=== PATIENT | female | born 1930 | race Caucasian/White ===

== ENCOUNTER → 2016-06-01 | Outpatient (CLI) | payer MEDICARE, OTHER ==
[2016-06-01 09:54] LABS: CH 29.7; CHCM 34.5; HCT 33.4 % (34.0-46.0); HGB 11.7 gm/dL (11.4-16.0); MCH 30.3 pg (25.0-35.0); MCV 86.7 fL (80.0-100.0); Mean Platelet Volume 8.3; RBC 3.85 m/uL (3.80-5.40); WBC 4.8 k/uL (3.8-10.6)
[2016-06-01 10:15] LABS: ALT 45 U/L (9-52); AST 30 U/L (14-36); Alkaline Phosphatase 165 U/L (38-126); Anion Gap 12 mmol/L; Blood Urea Nitrogen 22 mg/dL (7-17); Calcium 8.6 mg/dL (8.4-10.2); Carbon Dioxide 23 mmol/L (22-30); Chloride 95 mmol/L (98-107); Cholesterol 82 mg/dL (<200); Glucose 148 mg/dL (74-99); HDL Cholesterol 55 mg/dL (40-60); Non-African American GFR(MDRD) >60 (>60 ml/min/1.73 sqM); Potassium 4.3 mmol/L (3.5-5.1); Sodium 130 mmol/L (137-145); Total Bilirubin 1.5 mg/dL (0.2-1.3); Total Protein 7.5 g/dL (6.3-8.2); Triglycerides 35 mg/dL (<150)
== END | disposition home or self-care (01) ==
LOC: LABWHC1 08:41
PROVIDERS: ATTEND Family Medicine
DX: E11.9 Type 2 diabetes mellitus without complications (principal); I10 Essential (primary) hypertension
CPT/HCPCS: 36415; 80053; 80061; 83036; 84439; 84443; 85027

== ENCOUNTER → 2016-06-07 | Outpatient (CLI) | payer MEDICARE, OTHER ==
--- NOTE | 2016-06-07 15:34 | XR ---
EXAMINATION TYPE: XR chest 2V DATE OF EXAM: 06/07/2016 2:18 PM COMPARISON: Prior chest x-ray February HISTORY: Difficulty breathing, edema, weakness TECHNIQUE: Frontal and lateral views of the chest are obtained. FINDINGS: Patient is post median sternotomy. Intracardiac defibrillator leads are stable in the righ t atrium and ventricle. The heart is enlarged. Interval development of increased density at the right lung base, along the right upper lobe. No evident pneumothorax. Central vascularity and interstitium appear prominently. Surgical clip questioned over the right neck. IMPRESSION: There may be underlying congestive heart failure, correlate to exclude pneumonia, there is likely associated effusion and atelectasis versus edema. Suspect mitral annular calcification. A [place] message has been communicated to Eduar Warren DO via the [facility] system on 06/07/2016 3:32 PM, Message ID [id number].
== END | disposition home or self-care (01) ==
LOC: RADXRMAIN 13:45
PROVIDERS: ATTEND Family Medicine
DX: E86.0 Dehydration (principal); R60.9 Edema, unspecified
CPT/HCPCS: 71020

== ENCOUNTER → 2016-07-06 | Outpatient (CLI) | payer MEDICARE, OTHER ==
--- NOTE | 2016-07-06 12:43 | XR ---
EXAMINATION TYPE: XR chest 2V DATE OF EXAM: 07/06/2016 12:17 PM COMPARISON: Prior chest x-ray one June 2016 HISTORY: Cough and shortness of breath TECHNIQUE: Frontal and lateral views of the chest are obtained. FINDINGS: Patient is post median sternotomy. Heart remains enlarged. There is improvement in the int erstitium and prominence of the central vascularity. Residual patchy density persists at the right олег ng base. Intracardiac defibrillator is stable. No evident pneumothorax. Interstitium is somewhat incr eased. Some improvement in aeration resident in the right upper lobe. IMPRESSION: Improvement in volume status, aeration. Cardiomegaly. There may be a component of volume overload, right lower lobe atelectasis, effusion, edema, pneumonia not excluded.
== END ==
LOC: RADXRMAIN 11:52
PROVIDERS: ATTEND Family Medicine
DX: I51.7 Cardiomegaly (principal)
CPT/HCPCS: 71020

== ENCOUNTER → 2016-08-08 | Outpatient (CLI) | payer MEDICARE, OTHER ==
[2016-08-08 14:06] LABS: Anion Gap 12 mmol/L; Blood Urea Nitrogen 18 mg/dL (7-17); Calcium 8.6 mg/dL (8.4-10.2); Carbon Dioxide 23 mmol/L (22-30); Chloride 97 mmol/L (98-107); Glucose 121 mg/dL (74-99); Non-African American GFR(MDRD) >60 (>60 ml/min/1.73 sqM); Potassium 4.3 mmol/L (3.5-5.1); Sodium 132 mmol/L (137-145)
== END | disposition home or self-care (01) ==
LOC: LABWHC1 13:03
PROVIDERS: ATTEND Family Medicine
DX: R60.0 Localized edema (principal); G43.909 Migraine, unspecified, not intractable, without status migrainosus
CPT/HCPCS: 36415; 80048

== ENCOUNTER → 2016-11-21 | Outpatient (CLI) | payer MEDICARE, OTHER ==
[2016-11-21 13:32] LABS: Anion Gap 9 mmol/L; Blood Urea Nitrogen 37 mg/dL (7-17); Calcium 9.4 mg/dL (8.4-10.2); Carbon Dioxide 30 mmol/L (22-30); Chloride 103 mmol/L (98-107); Glucose 113 mg/dL (74-99); Non-African American GFR(MDRD) >60 (>60 ml/min/1.73 sqM); Potassium 4.8 mmol/L (3.5-5.1); Sodium 142 mmol/L (137-145)
== END | disposition home or self-care (01) ==
LOC: LABWHC1 12:46
PROVIDERS: ATTEND Family Medicine
DX: E03.9 Hypothyroidism, unspecified (principal); E11.9 Type 2 diabetes mellitus without complications; I50.9 Heart failure, unspecified; E87.1 Hypo-osmolality and hyponatremia
CPT/HCPCS: 36415; 80048; 84439; 84443

== ENCOUNTER 2017-01-10 16:44 | Inpatient (IN) | payer MEDICARE, OTHER ==
[2017-01-10] MEDS ORDERED: NALOXONE 0.4 MG/ML 1 ML VIAL IV PRN (17:23)
--- NOTE | 2017-01-10 17:32 | ED ---
General Adult HPI - General Chief complaint: Syncope Stated complaint: neuro consult Time Seen by Provider: 01/10/17 16:50 Source: patient, family, EMS, RN notes reviewed Mode of arrival: EMS Limitations: no limitations - History of Present Illness Initial comments: 86-year-old female presents as a transfer from [facility]. Patient was evaluated in the emergency department earlier today, prior to transfer for an episode of unresponsiveness and seizure-like activity. Patient is a poor historian, denies any complaints at the time of my evaluation. Denies chest pain or shortness of breath. Denies palpitations. States she does remember the events of this morning, does not remember being unconscious or any seizure-like activity. History obtained from both a daughter in the ER physician at [facility] states that the patient was unresponsive, had tensing of her right upper extremity. Patient's symptoms did resolve. She has had several these episodes over the past week. Patient denies fever or chills. Denies nausea vomiting or diarrhea. - Related Data Home Medications Medication Instructions Recorded Confirmed Aspirin 81 mg PO DAILY 01/30/15 05/15/15 Famotidine [Pepcid] 20 mg PO DAILY 01/30/15 05/15/15 Furosemide [Lasix] 20 mg PO DAILY 01/30/15 05/15/15 Atorvastatin [Lipitor] 40 mg PO HS 05/15/15 05/15/15 Levothyroxine Sodium [Synthroid] 100 mcg PO DAILY 05/15/15 05/15/15 Lisinopril [Zestril] 10 mg PO DAILY 05/15/15 05/15/15 Previous Rx's Medication Instructions Recorded hydrALAZINE HCL [Apresoline] 25 mg PO BID #60 tab 02/01/15 Carvedilol [Coreg] 6.25 mg PO BID-W/MEALS #60 tab 05/21/15 Repaglinide [Prandin] 1 mg PO TID #0 05/21/15 Allergies Allergy/AdvReac Type Severity Reaction Status Date / Time No Known Allergies Allergy Verified 05/15/15 11:02 Review of Systems ROS Statement: Those systems with pertinent positive or pertinent negative responses have been documented in the HPI. ROS Other: All systems not noted in ROS Statement are negative. Past Medical History Past Medical History: Coronary Artery Disease (CAD), Heart Failure, Diabetes Mellitus, Hearing Disorder / Deafness, Hypertension, Myocardial Infarction (ME) Additional Past Medical History / Comment(s): 05-04-14 [place]. per patient's family , patient never had a CVA/TIA. RUBY in Left ear. Last Myocardial Infarction Date:: 05-04-14 History of Any Multi-Drug Resistant Organisms: None Reported Past Surgical History: Cholecystectomy, Coronary Bypass/CABG, Heart Catheterization, Pacemaker Additional Past Surgical History / Comment(s): CABG May 2014 at [facility]. Past Anesthesia/Blood Transfusion Reactions: No Reported Reaction Type of Cardiac Device: AICD Device Placement Date:: April 2015 Past Psychological History: No Psychological Hx Reported Smoking Status: Never smoker Past Alcohol Use History: None Reported, Occasional Past Drug Use History: None Reported - Past Family History Father Family Medical History: CVA/TIA, Myocardial Infarction (ME) Mother Family Medical History: CVA/TIA General Exam Limitations: no limitations General appearance: alert, in no apparent distress, appears intoxicated Head exam: Present: atraumatic, normocephalic Eye exam: Present: normal appearance, PERRL ENT exam: Present: normal exam, mucous membranes moist Neck exam: Present: normal inspection. Absent: tenderness, meningismus Respiratory exam: Present: normal lung sounds bilaterally. Absent: respiratory distress Cardiovascular Exam: Present: regular rate, normal rhythm GI/Abdominal exam: Present: soft. Absent: distended, tenderness Extremities exam: Present: normal inspection, normal capillary refill. Absent: pedal edema Neurological exam: Present: alert, oriented X3, CN II-XII intact. Absent: motor sensory deficit Psychiatric exam: Present: flat affect Skin exam: Present: warm, dry, intact. Absent: cyanosis, diaphoretic Course Vital Signs 01/10/17 16:46 Temperature 97 F L Pulse Rate 63 Respiratory 18 Rate Blood Pressure 149/67 Medical Decision Making - Medical Decision Making 86-year-old female presenting as a transfer with episode of unresponsiveness and seizure-like activity. Patient does have a pacemaker. There was plantar admit the patient to [facility] for cardiology evaluation, however there is no neurology coverage and the patient's admitting physician and requested transfer for neurology evaluation. Laboratory studies were obtained at [facility], revealed a white blood cell, 6.7, hemoglobin 10.7, sodium 136, potassium 4.3, creatinine 0.66. Urinalysis was obtained, no signs of infection. Chest x-ray shows small right pleural effusion. CT showed no intracranial hemorrhage or mass effect. Patient 's past medical history includes hypothyroidism, COPD, congestive heart failure , diabetes, and pacemaker placement. Diagnosis: Concern for new onset seizures versus syncope. Disposition Clinical Impression: New onset seizure, Syncope Disposition: ADMITTED IP TO THIS [facility] Condition: Stable Referrals: Eduar Warren DO [Primary Care Provider] - 1-2 days Decision to Admit Reason: Admit from EC Decision Date: 01/10/17 Decision Time: 17:32
[2017-01-10 18:45] LABS: Glucose,Whole Blood 156 mg/dL (75-99)
[2017-01-10 18:55] LABS: Creatine Kinase 37 U/L (30-135)
[2017-01-10 19:08] LABS: Creatine Kinase MB 0.9 ng/mL (0.0-2.4); Troponin I <0.012 ng/mL (0.000-0.034)
[2017-01-10] MEDS: CARVEDILOL 6.25 MG TAB PO SCH (20:52)
[2017-01-10] MEDS: hydrALAZINE HCL 25 MG TAB PO SCH (20:53)
[2017-01-10] MEDS: ATORVASTATIN 40 MG TAB PO SCH (20:53)
[2017-01-10] MEDS: REPAGLINIDE 1 MG TAB PO SCH (21:11)
[2017-01-10 21:14] LABS: Glucose,Whole Blood 153 mg/dL (75-99)
[2017-01-11 00:50] LABS: Creatine Kinase MB 0.7 ng/mL (0.0-2.4); Troponin I 0.019 ng/mL (0.000-0.034)
[2017-01-11 02:55] LABS: Glucose,Whole Blood 156 mg/dL (75-99)
[2017-01-11 06:07] LABS: Glucose,Whole Blood 64 mg/dL (75-99)
[2017-01-11 06:26] LABS: Glucose,Whole Blood 82 mg/dL (75-99)
[2017-01-11] MEDS: LEVOTHYROXINE 100 MCG TAB PO SCH (06:37)
[2017-01-11] MEDS: CARVEDILOL 6.25 MG TAB PO SCH ×2 (06:37→18:34)
[2017-01-11 06:40] LABS: Basophils % (A) 0 %; CHCM 32.8; Eosinophils # (A) 0.2 k/uL (0-0.7); Eosinophils % (A) 4 %; HGB 11.2 gm/dL (11.4-16.0); Luc # (Auto) 0.19; Luc % (Auto) 3; Lymphocytes # (A) 1.5 k/uL (1.0-4.8); Lymphocytes % (A) 26 %; MCH 29.4 pg (25.0-35.0); Mean Platelet Volume 6.9; Monocytes # (A) 0.5 k/uL (0-1.0); Monocytes % (A) 8 %; Neutrophils # (A) 3.3 k/uL (1.3-7.7); Neutrophils % (A) 58 %; RBC 3.82 m/uL (3.80-5.40); RDW 14.1 % (11.5-15.5); WBC 5.7 k/uL (3.8-10.6); WBC (Perox) 6.08
[2017-01-11 06:58] LABS: ALT 63 U/L (9-52); AST 39 U/L (14-36); Alkaline Phosphatase 133 U/L (38-126); Anion Gap 9 mmol/L; Blood Urea Nitrogen 29 mg/dL (7-17); Calcium 9.5 mg/dL (8.4-10.2); Carbon Dioxide 25 mmol/L (22-30); Chloride 106 mmol/L (98-107); Glucose 67 mg/dL (74-99); Non-African American GFR(MDRD) >60 (>60 ml/min/1.73 sqM); Potassium 4.9 mmol/L (3.5-5.1); Sodium 140 mmol/L (137-145); Total Bilirubin 0.7 mg/dL (0.2-1.3); Total Protein 7.6 g/dL (6.3-8.2)
[2017-01-11 07:19] LABS: Creatine Kinase MB 0.8 ng/mL (0.0-2.4); Troponin I 0.014 ng/mL (0.000-0.034)
[2017-01-11] MEDS: ASPIRIN 81 MG CHEW PO SCH (08:05)
[2017-01-11] MEDS: hydrALAZINE HCL 25 MG TAB PO SCH (08:05)
[2017-01-11] MEDS: ISOSORBIDE DINITRATE 10 MG TAB PO SCH (08:05)
[2017-01-11] MEDS: FUROSEMIDE 40 MG TAB PO SCH (08:05)
[2017-01-11] MEDS: MAGNESIUM OXIDE 400 MG TAB PO SCH (08:06)
[2017-01-11] MEDS: POTASSIUM CHLORIDE ER 20 MEQ TAB.ER PO SCH (08:06)
[2017-01-11] MEDS: REPAGLINIDE 1 MG TAB PO SCH ×3 (08:06→18:34)
[2017-01-11] MEDS: ACETAMINOPHEN TAB 325 MG TAB PO PRN (08:19)
[2017-01-11] MEDS ORDERED: LISINOPRIL 10 MG TAB PO SCH (09:00)
--- NOTE | 2017-01-11 10:59 | CONS ---
CONSULTATION DATE OF CONSULTATION: 01/10/2017 CHIEF COMPLAINT: Syncope. HISTORY OF PRESENT ILLNESS: Mrs. Mendiola is a pleasant 86-year-old female, who is being evaluated by the Neurology Service per their request of Dr. Morgan for a syncopal episode. The patient was at home this morning and after she had breakfast and took her morning pills, she had an episode of reduced consciousness. Her daughter witnessed the spell and she informs me that the patient was sitting in her reclining chair and slumped forward and became less responsive. She noticed mild twitching in her right upper extremity. The symptoms lasted several minutes. She was initially taken to [facility] where she had a CT scan of the brain and it was normal according to the chart. Her daughter tells me that she did check her blood pressure at home and it was quite low with a systolic blood pressure in the 60s. Her CBC showed mild anemia with a hemoglobin of 10.7. Her basic metabolic profile and urinalysis were normal. A chest x-ray was done at [facility] which showed evidence of right pleural effusion. The patient states that she has been having recurrent episodes of hypotension. She does have history of cardiac disease with a pacemaker placement and is on multiple antihypertensive medications. These have been recently adjusted by her tufter operator but she is still running hypotensive at home when she checks her blood pressure. At the time of my evaluation, the patient is resting in her bed and appears to be in no acute distress. She denies any recurrence of any presyncopal or syncopal episodes since her admission. PAST MEDICAL HISTORY: Hypertension, coronary artery disease, congestive heart failure, diabetes, history of myocardial infarction, history of pacemaker placement and cholecystectomy. SOCIAL HISTORY: She denies any tobacco or drug use. She occasionally drinks alcohol. FAMILY HISTORY: Positive for heart disease and strokes. REVIEW OF SYSTEMS: CONSTITUTIONAL: Negative. EYES: Negative. ENT: Positive for chronic diminished hearing. CARDIOVASCULAR: As mentioned above. RESPIRATORY: Negative. NEUROLOGICAL: As mentioned above. She denies any lateralizing numbness or weakness. GASTROINTESTINAL: Negative. GENITOURINARY: Negative. PSYCHIATRIC: Negative. MUSCULOSKELETAL: Negative. ENDOCRINE: Positive for diabetes. DERMATOLOGICAL: Negative. PHYSICAL EXAM: Vital signs show a temperature of 97.6, pulse 70, respirations 16, blood pressure 155/74. GENERAL APPEARANCE: The patient is a well-developed female who appears to be in no acute distress. HEENT: Normocephalic, atraumatic, no facial asymmetry is seen, extraocular muscles are intact. Neck is supple with no masses felt. CARDIOVASCULAR: Regular rate and rhythm. ABDOMEN: Nontender, nondistended. Extremities showed no edema or clubbing. NEUROLOGICAL EXAM: The patient is alert, aware and oriented x3. Speech and language are normal. Strength is full in all 4 extremities. No pronator drift is seen. Sensory exam was normal to light touch in all 4 extremities. No tremors or seizure- like activity is seen. No facial asymmetry is seen on cranial nerve testing. IMPRESSION: 1. Syncopal episode. 2. Right upper extremity transient jerking, questionable focal seizure. 3. Hypotension. 4. Possible pneumonia. RECOMMENDATION: The patient did have a witnessed episode of loss of consciousness and the patient does not recall the event. The patient was very hypotensive when the episode occurred, as mentioned above. Her syncope was likely cardiovascular in etiology. I will order an EEG due to the transient right upper extremity jerking that was described by the patient's daughter, who did witness the event. Her CT scan of the brain was normal at [facility]. I do recommend a Cardiology consultation for further workup and management and possible adjustment of her antihypertensive medications. I also recommend antibiotic therapy given her above-mentioned chest x-ray results. Continue neuro checks. I will continue to follow with you. Further recommendations to follow. Thank you for allowing me to participate in the care of your patient. If you have any questions, please feel free to contact me. MMFABI / IJN: [id number] /
--- NOTE | 2017-01-11 11:23 | P.CRDCN ---
History of Present Illness Consult date: 01/11/17 Consult reason: sycope History of present illness: 86-year-old lady with history of coronary artery disease status post CABG ischemic cardiomyopathy status post AICD hypertension dyslipidemia who comes to Hospital having had episodes of syncope. Most of the information is obtained from patient's daughter. She has had 4 episodes of syncope over the last 6 weeks. All of these episodes where she passes sitting in a chair without any focal neurological deficits. She drools at her and mouth and wakes up when she is woken up. There is no history of bladder bowel incontinence. There is no history of other focal neurological deficits. At the time of my evaluation this morning she appears comfortable at rest and is free of symptoms. So far her cardiac enzymes have been negative. We haven't documented any tachycardia or bradycardia arrhythmias yet. Going to check her device and if this looks normal we are going to let the neurology pursue her workup. Review of Systems Constitutional: Denies chills. Denies fever. Eyes: Denies blurred vision. Denies pain. Ears, nose, mouth and throat: Denies headache. Denies sore throat. Cardiovascular: Denies chest pain. hasshortness of breath. Respiratory: Denies cough. Gastrointestinal: Denies abdominal pain. Denies diarrhea. Denies nausea. Denies vomiting. Musculoskeletal: Denies myalgias. Integumentary: Denies pruritus. Denies rash. Neurological: Denies numbness. Denies weakness. Psychiatric: Denies anxiety. Denies depression. Endocrine: Denies fatigue. Denies weight change. Genitourinary: Denies burning, hematuria, frequency of urination. Hematological: No anemia or excess bleeding. Past Medical History Past Medical History: Coronary Artery Disease (CAD), Heart Failure, Diabetes Mellitus, GERD/Reflux, Hearing Disorder / Deafness, Hyperlipidemia, Hypertension , Myocardial Infarction (ND), Thyroid Disorder Additional Past Medical History / Comment(s): 05-04-14 [place]. per patient's family , patient never had a CVA/TIA. KOTZEBUE in Left ear. UTI-ECOLI 2014,HIATAL HERNIA Last Myocardial Infarction Date:: 05-04-14 History of Any Multi-Drug Resistant Organisms: None Reported Past Surgical History: Cholecystectomy, Coronary Bypass/CABG, Heart Catheterization, Pacemaker Additional Past Surgical History / Comment(s): CABG May 2014 at [facility]. LT CATARACT SX, EGD W/ BX-NEG Past Anesthesia/Blood Transfusion Reactions: No Reported Reaction Type of Cardiac Device: AICD Device Placement Date:: April 2015 Smoking Status: Never smoker - Past Family History Father Family Medical History: CVA/TIA, Myocardial Infarction (ND) Mother Family Medical History: CVA/TIA Medications and Allergies Home Medications Medication Instructions Recorded Confirmed Type Furosemide [Lasix] 20 mg PO DAILY@1700 01/30/15 01/10/17 History hydrALAZINE HCL [Apresoline] 25 mg PO BID #60 tab 02/01/15 01/10/17 Rx Atorvastatin [Lipitor] 40 mg PO HS 05/15/15 01/10/17 History Levothyroxine Sodium [Synthroid] 100 mcg PO DAILY 05/15/15 01/10/17 History Carvedilol [Coreg] 6.25 mg PO BID-W/MEALS #60 tab 05/21/15 01/10/17 Rx Repaglinide [Prandin] 1 mg PO TID #0 05/21/15 01/10/17 Rx Furosemide [Lasix] 40 mg PO DAILY 01/10/17 01/10/17 History Isosorbide Dinitrate 30 mg PO DAILY 01/10/17 01/10/17 History Magnesium Oxide 800 mg PO DAILY 01/10/17 01/10/17 History Potassium Chloride [Klor-Con 20] 20 meq PO DAILY 01/10/17 01/10/17 History Allergies Allergy/AdvReac Type Severity Reaction Status Date / Time No Known Allergies Allergy Verified 05/15/15 11:02 Physical Exam Vitals: Vital Signs Temp Pulse Pulse Resp BP BP Pulse Ox 01/11/17 08:21 96.9 F L 62 18 138/54 98 01/11/17 03:12 97.9 F 73 18 127/78 97 01/11/17 00:00 97.0 F L 63 18 164/72 97 01/10/17 20:00 97.6 F 63 18 158/70 96 01/10/17 18:51 97.6 F 70 16 155/74 97 01/10/17 17:53 97.1 F L 67 20 137/108 98 01/10/17 16:46 97 F L 63 18 149/67 Intake and Output 01/10/17 01/11/17 01/11/17 22:59 06:59 14:59 Output Total 900 Balance -900 Output: Urine 900 Other: Voiding Method Toilet Toilet Toilet # Voids 1 Weight 49.442 kg 45.1 kg General: The patient is awake and alert, in no distress, and does not appear acutely ill. Skin: Skin is warm and dry and no rashes or lesions are noted. Eye: Pupils are equal, round and reactive to light, extra-ocular movements are intact; there is normal conjunctiva bilaterally. Ears, nose, mouth and throat: There are moist mucous membranes and no oral lesions. Neck: The neck is supple, there is no tenderness or JVD. Cardiovascular: There is a regular rate and rhythm. Ejection systolic murmur at the base Respiratory: Lungs are clear to auscultation, respirations are non-labored, breath sounds are equal. Gastrointestinal: Soft, non-distended, non-tender abdomen without masses or organomegaly noted. There is no rebound or guarding present. Bowel sounds are unremarkable. Back: There is no tenderness to palpation in the midline. There is no obvious deformity. Musculoskeletal: Normal ROM, no tenderness, There is no pedal edema. There is no calf tenderness or swelling. Extremities: No edema. Vascular: Femoral pulse is normal. Posterior tibial pulses are normal .Dorsalis pedis is palpable. Neurological: CN II-XII intact. There are no obvious motor or sensory deficits. Speech is normal. Psychiatric: Cooperative, appropriate mood & affect, normal judgment. Results 01/11/17 06:15 01/11/17 06:15 Cardiac Enzymes 01/10/17 01/10/17 01/11/17 Range/Units 18:18 23:59 06:15 AST 39 H (14-36) U/L CK-MB (CK-2) 0.9 0.7 (0.0-2.4) ng/mL Troponin I <0.012 0.019 (0.000-0.034) ng/mL 01/11/17 Range/Units 06:15 AST (14-36) U/L CK-MB (CK-2) 0.8 (0.0-2.4) ng/mL Troponin I 0.014 (0.000-0.034) ng/mL CBC 01/11/17 Range/Units 06:15 WBC 5.7 (3.8-10.6) k/uL RBC 3.82 (3.80-5.40) m/uL Hgb 11.2 L (11.4-16.0) gm/dL Hct 34.0 (34.0-46.0) % Plt Count 234 (150-450) k/uL Comprehensive Metabolic Panel 01/11/17 Range/Units 06:15 Sodium 140 (137-145) mmol/L Potassium 4.9 (3.5-5.1) mmol/L Chloride 106 (98-107) mmol/L Carbon Dioxide 25 (22-30) mmol/L BUN 29 H (7-17) mg/dL Creatinine 0.62 (0.52-1.04) mg/dL Glucose 67 L (74-99) mg/dL Calcium 9.5 (8.4-10.2) mg/dL AST 39 H (14-36) U/L ALT 63 H (9-52) U/L Alkaline Phosphatase 133 H (38-126) U/L Total Protein 7.6 (6.3-8.2) g/dL Albumin 4.2 (3.5-5.0) g/dL Current Medications Generic Name Dose Route Start Last Admin Trade Name Freq PRN Reason Stop Dose Admin Acetaminophen 650 mg 01/10/17 17:23 01/11/17 08:19 Tylenol Tab PO 650 mg Q6HR PRN Administration Mild Pain or Fever > 100.5 Aspirin 81 mg 01/11/17 09:00 01/11/17 08:05 Aspirin PO 81 mg DAILY SULAIMAN Administration Atorvastatin Calcium 40 mg 01/10/17 21:00 01/10/17 20:53 Lipitor PO 40 mg HS SULAIMAN Administration Carvedilol 6.25 mg 01/10/17 17:30 01/11/17 06:37 Coreg PO 6.25 mg BID-W/MEALS SULAIMAN Administration Furosemide 20 mg 01/11/17 17:00 Lasix PO DAILY@1700 SULAIMAN Furosemide 40 mg 01/11/17 09:00 01/11/17 08:05 Lasix PO 40 mg DAILY SULAIMAN Administration Hydralazine HCl 25 mg 01/10/17 21:00 01/11/17 08:05 Apresoline PO 25 mg BID SULAIMAN Administration Insulin Human Lispro 0 unit 01/11/17 12:30 Humalog SQ ACHS SULAIMAN Protocol Isosorbide Dinitrate 30 mg 01/11/17 09:00 01/11/17 08:05 Isordil PO 30 mg DAILY SULAIMAN Administration Levothyroxine Sodium 100 mcg 01/11/17 06:30 01/11/17 06:37 Synthroid PO 100 mcg DAILY@0630 SULAIMAN Administration Lisinopril 10 mg 01/11/17 09:00 01/11/17 08:05 Zestril PO 10 mg DAILY SULAIMAN Administration Magnesium Oxide 800 mg 01/11/17 09:00 01/11/17 08:06 Mag-Ox PO 800 mg DAILY SULAIMAN Administration Naloxone HCl 0.2 mg 01/10/17 17:23 Narcan IV Q2M PRN Opioid Reversal Potassium Chloride 20 meq 01/11/17 09:00 01/11/17 08:06 K-Dur 20 PO 20 meq DAILY SULAIMAN Administration Repaglinide 1 mg 01/10/17 22:00 01/11/17 08:06 Prandin PO 1 mg TID SULAIMAN Administration Intake and Output 01/10/17 01/11/17 01/11/17 22:59 06:59 14:59 Output Total 900 Balance -900 Output: Urine 900 Other: Voiding Method Toilet Toilet Toilet # Voids 1 Weight 49.442 kg 45.1 kg 01/11/17 06:15 01/11/17 06:15 EKG Interpretations (text) To be reviewed Assessment and Plan Plan: Syncope rule out cardiac causes CAD status post CABG Status post AICD Myocardial infarction is ruled out EKG shows sinus rhythm with left bundle branch block reviewed labs I will obtain a 2-D echo if one is not available We will do a carotid duplex follow the neurological workup check the device
[2017-01-11 11:45] LABS: Hemoglobin A1C 6.1 % (4.2-6.1)
[2017-01-11] MEDS: INSULIN LISPRO (humaLOG) 300 UNIT/3 ML VIAL SQ SCH ×3 (12:10→21:56)
[2017-01-11 12:23] LABS: Glucose,Whole Blood 74 mg/dL (75-99)
--- NOTE | 2017-01-11 14:42 | P.HPIM ---
History of Present Illness H&P Date: 01/11/17 Chief Complaint: Syncope This is an 86-year-old pleasant lady patient of Dr. Warren. Dr. BELLA Gregorio She has underlying history of ischemic cardiac myopathy, systolic CHF ejection fraction of 20%, status post AICD placement, hypothyroidism, diabetes mellitus type 2, hypertension, chronic right pleural effusion, COPD, who was sent in to the emergency room secondary to recurrent syncopal events. Patient would be noticed to be slumped over in her recliner, with drooling, is difficult to arouse, blood pressure was noted to be in the 60s according to the family members, blood sugar were all normal, otherwise there is no other focal neurologic deficits, patient had been witnessed to have decorticate posturing on the on the right side of the upper extremity when this occurs, this would be her fourth event. According to the family members be started 4 weeks ago the related to the initiation of Entresto, the medication would go go back down and thereafter be stabilized at the dosing and titrated up to a twice a day dose and the car ferry master thereafter discontinued this after the second with titration on his the blood pressure remained to be low. Hydralazine was not discontinued at this point however lisinopril was discontinued. Her Lasix remain the same. The symptoms persisted for another 2 weeks with syncope lightheadedness, despite withdrawal of the drug 2 weeks in a row. Patient's family are more concerned as the patient took a longer time to arouse this time hence the ER evaluation at [facility]. There was some concern about the seizure-like activity and the decortication eyes there was no neurologist agriculture extension specialist, patient was requested to be transferred to [facility]. As per family members urinalysis was performed and was unremarkable patient denies any headache no diplopia no isolated motor deficits in the upper and lower extremity, patient has chronic memory losses . No diarrhea no nausea no abdominal pain prior to admission. On the day of her stay in the hospital she had a few bouts of diarrhea she also has suprapubic pain on examination blood pressure is currently stable without any pressor agents, heart rate in the high 60s. Patient was in consultation by Dr. Delcid neurology and cardiology associates Review of Systems Constitutional: Reports as per HPI, Reports weakness, Denies anorexia, Denies chills, Denies chronic headaches, Denies chronic pain, Denies daytime sleepiness , Denies fatigue, Denies fever, Denies lethargy, Denies malaise, Denies night sweats, Denies poor appetite, Denies sweats, Denies weight gain, Denies weight loss Ears, nose, mouth and throat: Reports as per HPI, Denies ant. neck pain, Denies bleeding gums, Denies dental pain, Denies dysphagia, Denies epistaxis, Denies headache, Denies hoarseness, Denies mouth pain, Denies nasal congestion, Denies nasal discharge, Denies neck fullness/pressure, Denies neck lump, Denies nose pain, Denies odynophagia, Denies post-nasal drip, Denies sinus pain, Denies sinus pressure, Denies swelling in mouth, Denies swelling in throat, Denies sore throat, Denies vertigo, Denies voice changes Cardiovascular: Reports as per HPI, Reports lightheadedness, Reports syncope, Denies chest pain, Denies claudication, Denies decreased exercise tolerance, Denies dyspnea on exertion, Denies edema, Denies high blood pressure, Denies irregular heart beat, Denies leg edema, Denies orthopnea, Denies palpitations, Denies paroxysmal nocturnal dyspnea, Denies phlebitis, Denies rapid heart beat, Denies shortness of breath Respiratory: Reports as per HPI, Denies congestion, Denies cough, Denies cough with sputum, Denies dyspnea, Denies excessive sputum, Denies hemoptysis, Denies home oxygen, Denies pain, Denies pain on inspiration, Denies pleurisy, Denies respiratory infections, Denies sleep apnea, Denies snoring, Denies wheezing Gastrointestinal: Reports as per HPI Genitourinary: Reports as per HPI, Denies abnormal vaginal bleeding, Denies decreased libido, Denies difficulty conceiving, Denies difficulty voiding, Denies dysmenorrhea, Denies dyspareunia, Denies dysuria, Denies flank pain, Denies genital sores, Denies hematuria, Denies hot flashes, Denies incomplete emptying, Denies kidney stones, Denies menorrhagia, Denies mixed incontinence, Denies nocturia, Denies pelvic pain, Denies post void dribbling, Denies , Denies prolapse symptoms, Denies stress incontinence, Denies urge incontinence , Denies urgency, Denies urinary frequency, Denies vaginal discharge, Denies vaginal dryness, Denies vaginal itching, Denies vaginal odor Menstruation: Reports as per HPI, Denies amenorrhea, Denies amenorrhea on BC, Denies currently menstrual, Denies cycle < 21 days, Denies cycle > 35 days, Denies cycle variable, Denies menses 1-7 days, Denies menses 8 or > days, Denies menses variable, Denies period heavy, Denies period light, Denies period normal, Denies period spotting, Denies post hysterectomy, Denies postmenopausal , Denies premenarcheal Musculoskeletal: Reports as per HPI, Denies arm numbness/tingling, Denies atrophy, Denies fractures, Denies frequent falls, Denies gait dysfunction, Denies hot joints, Denies leg numbness/tingling, Denies limitation of motion, Denies loss of height, Denies low back pain, Denies morning stiffness, Denies muscle cramps, Denies muscle weakness, Denies myalgias, Denies neck pain, Denies neck stiffness, Denies prior amputations, Denies redness of joints, Denies shooting arm pain, Denies shooting leg pain Integumentary: Reports as per HPI, Denies acne, Denies boils, Denies brittle nails, Denies change in hair/nails, Denies color changes, Denies darkening of skin, Denies depigmentation, Denies dryness, Denies foot/leg ulcers, Denies growths, Denies hirsutism, Denies lesions, Denies onychomycosis, Denies pruritus , Denies rash, Denies sores, Denies striae, Denies unusual bruising, Denies wounds Neurological: Reports as per HPI, Reports vertigo, Denies aphasia, Denies ataxia , Denies balance difficulties, Denies burning pain, Denies change in mentation, Denies change in smell/taste, Denies change in speech, Denies confusion, Denies convulsions, Denies double vision, Denies gait dysfunction, Denies head injury, Denies headaches, Denies hearing difficulties, Denies lack of coordination, Denies loss of vision, Denies memory loss, Denies migraines, Denies motor disturbance, Denies numbness, Denies paralysis, Denies paresthesias, Denies seizures, Denies sensory deficit, Denies spasticity, Denies tic, Denies tingling , Denies transient paralysis, Denies tremors, Denies weakness, Denies visual changes Psychiatric: Reports as per HPI, Denies anhedonia, Denies anxiety, Denies anxiety attacks, Denies change in appetite, Denies change in libido, Denies change in sleep habits, Denies confusion, Denies depression, Denies difficulty concentrating, Denies disorientation, Denies hallucinations, Denies hopelessness , Denies hypersomnia, Denies insomnia, Denies irritability, Denies memory loss, Denies mood swings, Denies paranoia, Denies sadness/tearfulness, Denies sleep disturbances, Denies suicidal ideation Endocrine: Reports as per HPI, Denies cold intolerance, Denies deepening of the voice, Denies excessive sweating, Denies excessive thirst, Denies fatigue, Denies flushing, Denies heat intolerance, Denies high blood sugars, Denies increase in ring/shoe/hat size, Denies low blood sugars, Denies nocturia, Denies palpitations, Denies polydipsia, Denies polyphagia, Denies polyuria, Denies proptosis, Denies recent glucocorticoid use, Denies thyroid mass, Denies weight change Hematologic/Lymphatic: Reports as per HPI Allergic/Immunologic: Reports as per HPI, Denies allergic rhinitis, Denies anaphylaxis, Denies angioedema, Denies gluten intolerance, Denies persistent infections, Denies seasonal allergies, Denies urticaria, Denies wheezing Past Medical History Past Medical History: Coronary Artery Disease (CAD), Heart Failure, Diabetes Mellitus, GERD/Reflux, Hearing Disorder / Deafness, Hyperlipidemia, Hypertension , Myocardial Infarction ([place]), Thyroid Disorder Additional Past Medical History / Comment(s): 05-04-14 [place]. per patient's family , patient never had a CVA/TIA. [facility] in Left ear. UTI-ECOLI 2014,HIATAL HERNIA Last Myocardial Infarction Date:: 05-04-14 History of Any Multi-Drug Resistant Organisms: None Reported Past Surgical History: Cholecystectomy, Coronary Bypass/CABG, Heart Catheterization, Pacemaker Additional Past Surgical History / Comment(s): CABG May 2014 at [facility]. LT CATARACT SX, EGD W/ BX-NEG Past Anesthesia/Blood Transfusion Reactions: No Reported Reaction Type of Cardiac Device: AICD Device Placement Date:: April 2015 Smoking Status: Never smoker - Past Family History Father Family Medical History: CVA/TIA, Myocardial Infarction ([place]) Mother Family Medical History: CVA/TIA Medications and Allergies Home Medications Medication Instructions Recorded Confirmed Type Furosemide [Lasix] 20 mg PO DAILY@1700 01/30/15 01/10/17 History hydrALAZINE HCL [Apresoline] 25 mg PO BID #60 tab 02/01/15 01/10/17 Rx Atorvastatin [Lipitor] 40 mg PO HS 05/15/15 01/10/17 History Levothyroxine Sodium [Synthroid] 100 mcg PO DAILY 05/15/15 01/10/17 History Carvedilol [Coreg] 6.25 mg PO BID-W/MEALS #60 tab 05/21/15 01/10/17 Rx Repaglinide [Prandin] 1 mg PO TID #0 05/21/15 01/10/17 Rx Furosemide [Lasix] 40 mg PO DAILY 01/10/17 01/10/17 History Isosorbide Dinitrate 30 mg PO DAILY 01/10/17 01/10/17 History Magnesium Oxide 800 mg PO DAILY 01/10/17 01/10/17 History Potassium Chloride [Klor-Con 20] 20 meq PO DAILY 01/10/17 01/10/17 History Allergies Allergy/AdvReac Type Severity Reaction Status Date / Time No Known Allergies Allergy Verified 05/15/15 11:02 Physical Exam Vitals: Vital Signs Temp Pulse Pulse Resp BP BP BP 01/11/17 11:50 60 18 126/57 114/53 01/11/17 08:21 96.9 F L 62 18 01/11/17 03:12 97.9 F 73 18 01/11/17 00:00 97.0 F L 63 18 01/10/17 20:00 97.6 F 63 18 01/10/17 18:51 97.6 F 70 16 01/10/17 17:53 97.1 F L 67 20 137/108 01/10/17 16:46 97 F L 63 18 149/67 BP BP Pulse Ox 01/11/17 11:50 138/61 99 01/11/17 08:21 138/54 98 01/11/17 03:12 127/78 97 01/11/17 00:00 164/72 97 01/10/17 20:00 158/70 96 01/10/17 18:51 155/74 97 01/10/17 17:53 98 01/10/17 16:46 Intake and Output 01/10/17 01/11/17 01/11/17 22:59 06:59 14:59 Intake Total 737 Output Total 900 Balance -900 737 Intake: Oral 737 Output: Urine 900 Other: Voiding Method Toilet Toilet Toilet # Voids 1 2 # Bowel Movements 3 Weight 49.442 kg 45.1 kg - Constitutional General appearance: cooperative, no acute distress, thin - EENT Eyes: anicteric sclerae, EOMI, PERRLA, dentition normal, normal appearance ENT: NA/AT, normal oropharynx - Neck Neck: no lymphadenopathy, normal ROM, no other, no rigidity, no stridor, no thyromegaly - Respiratory Respiratory: bilateral: CTA, negative: diminished, dullness, rales, rhonchi, wheezing, prolonged expiration - Cardiovascular Rhythm: regular Heart sounds: normal: S1, S2 Abnormal Heart Sounds: no systolic murmur, no diastolic murmur, no rub, no S3 Gallop, no S4 Gallop, no click, no other - Gastrointestinal General gastrointestinal: normal bowel sounds, soft - Integumentary Integumentary: normal, normal turgor - Neurologic Neurologic: CNII-XII intact - Musculoskeletal Musculoskeletal: generalized weakness, strength equal bilaterally - Psychiatric Psychiatric: A&O x's 3, appropriate affect, intact judgment & insight Results CBC & Chem 7: 01/11/17 06:15 01/11/17 06:15 Labs: Abnormal Lab Results - Last 24 Hours (Table) 01/10/17 01/10/17 01/11/17 Range/Units 18:41 21:12 02:53 Hgb (11.4-16.0) gm/dL BUN (7-17) mg/dL Glucose (74-99) mg/dL POC Glucose (mg/dL) 156 H 153 H 156 H (75-99) mg/dL AST (14-36) U/L ALT (9-52) U/L Alkaline Phosphatase (38-126) U/L 01/11/17 01/11/17 01/11/17 Range/Units 06:05 06:15 06:15 Hgb 11.2 L (11.4-16.0) gm/dL BUN 29 H (7-17) mg/dL Glucose 67 L (74-99) mg/dL POC Glucose (mg/dL) 64 L (75-99) mg/dL AST 39 H (14-36) U/L ALT 63 H (9-52) U/L Alkaline Phosphatase 133 H (38-126) U/L 01/11/17 Range/Units 12:19 Hgb (11.4-16.0) gm/dL BUN (7-17) mg/dL Glucose (74-99) mg/dL POC Glucose (mg/dL) 74 L (75-99) mg/dL AST (14-36) U/L ALT (9-52) U/L Alkaline Phosphatase (38-126) U/L Laboratory Results WBC 5.7 k/uL (3.8-10.6) 01/11/17 06:15 RBC 3.82 m/uL (3.80-5.40) 01/11/17 06:15 Hgb 11.2 gm/dL (11.4-16.0) L 01/11/17 06:15 Hct 34.0 % (34.0-46.0) 01/11/17 06:15 MCV 89.0 fL (80.0-100.0) 01/11/17 06:15 MCH 29.4 pg (25.0-35.0) 01/11/17 06:15 MCHC 33.0 g/dL (31.0-37.0) 01/11/17 06:15 RDW 14.1 % (11.5-15.5) 01/11/17 06:15 Plt Count 234 k/uL (150-450) 01/11/17 06:15 Neutrophils % 58 % 01/11/17 06:15 Lymphocytes % 26 % 01/11/17 06:15 Monocytes % 8 % 01/11/17 06:15 Eosinophils % 4 % 01/11/17 06:15 Basophils % 0 % 01/11/17 06:15 Neutrophils # 3.3 k/uL (1.3-7.7) 01/11/17 06:15 Lymphocytes # 1.5 k/uL (1.0-4.8) 01/11/17 06:15 Monocytes # 0.5 k/uL (0-1.0) 01/11/17 06:15 Eosinophils # 0.2 k/uL (0-0.7) 01/11/17 06:15 Basophils # 0.0 k/uL (0-0.2) 01/11/17 06:15 Sodium 140 mmol/L (137-145) 01/11/17 06:15 Potassium 4.9 mmol/L (3.5-5.1) 01/11/17 06:15 Chloride 106 mmol/L (98-107) 01/11/17 06:15 Carbon Dioxide 25 mmol/L (22-30) 01/11/17 06:15 Anion Gap 9 mmol/L 01/11/17 06:15 BUN 29 mg/dL (7-17) H 01/11/17 06:15 Creatinine 0.62 mg/dL (0.52-1.04) 01/11/17 06:15 Est GFR (MDRD) Af Amer >60 (>60 ml/min/1.73 sqM) 01/11/17 06:15 Est GFR (MDRD) Non-Af >60 (>60 ml/min/1.73 sqM) 01/11/17 06:15 Glucose 67 mg/dL (74-99) L 01/11/17 06:15 POC Glucose (mg/dL) 74 mg/dL (75-99) L 01/11/17 12:19 POC Glu Log Sawyer Stu Armando 01/11/17 12:[address] Glu mg/dL 128 mg/dL 01/11/17 06:15 Hemoglobin A1c 6.1 % (4.2-6.1) 01/11/17 06:15 Calcium 9.5 mg/dL (8.4-10.2) 01/11/17 06:15 Magnesium 2.0 mg/dL (1.6-2.3) 01/11/17 06:15 Total Bilirubin 0.7 mg/dL (0.2-1.3) 01/11/17 06:15 AST 39 U/L (14-36) H 01/11/17 06:15 ALT 63 U/L (9-52) H 01/11/17 06:15 Alkaline Phosphatase 133 U/L (38-126) H 01/11/17 06:15 Total Creatine Kinase 32 U/L (30-135) 01/11/17 06:15 CK-MB (CK-2) 0.8 ng/mL (0.0-2.4) 01/11/17 06:15 CK-MB (CK-2) Rel Index 2.5 01/11/17 06:15 Troponin I 0.014 ng/mL (0.000-0.034) 01/11/17 06:15 Total Protein 7.6 g/dL (6.3-8.2) 01/11/17 06:15 Albumin 4.2 g/dL (3.5-5.0) 01/11/17 06:15 Thrombosis Risk Factor Assmnt - Choose All That Apply Each Risk Factor Represents 3 Points: Age 75 years or older Thrombosis Risk Factor Assessment Total Risk Factor Score: 3 Thrombosis Risk Factor Assessment Level: Moderate Risk Assessment and Plan Plan: Plan: 1 syncope useful in the morning after medication highly suspicious off medication induced hypotension occurrences are intermittent over the past 4 weeks this would be the fourth occurrence. However seizures cannot be ruled out , EEG of the brain and neurology consultation cardiology will be seeing the patient, doubt hypoglycemic events during this occurrences, blood pressure medications would be titrated again and with the resumption of Entresto 1D would discontinue hydralazine, and lisinopril. Entresto would be started on on January 13 to allow transition from an Jacob to entresto. Discussed with cardiology team and family members Last echocardiogram performed at [facility], September 2016 EF 15-20%, moderate to severe tricuspid regurgitation, right ventricle systolic pressure 46 , severe MR and no pericardial effusion no aortic stenosis noted, has aortic sclerosis and moderate aortic regurgitation 2Chronic CHF exacerbation with mixed systolic and diastolic component with severe systolic dysfunction ejection fraction 20% currently compensated. patient will be seen consultation by consultation by cardiology patient currently is on Coreg Lipitor aspirin 81 her last ultrasound shows ejection fraction of 20 percent September 2016. Troponins are normal 3. Prior non-ST [place] in 02/04/2015 status with critical multivessel coronary disease for which they have declined CABG procedures as recommended by Dr. Swan in the past January 2015: 4. History of ischemic cardiomyopathy ejection fraction of 20% with high degree A-V block requiring dual-chamber ICD implantation 01/30/2015 5 diabetes mellitus type 2 on Prandin with meals and Accu-Chek 6. COPD without any exacerbation 7. Hypertensive cardiovascular disease with ischemic cardiomyopathy, medication as above 8. Hypothyroidism on levothyroxine 9. CAD with previous CABG ABG at [facility] 10. History of parotitis diagnosed also in January 2015 no recurrence at this time 11 GERD: Will add Pepcid 20 mg daily. 12 DVT prophylaxis: Patient was started on Lanoxin 30 mg subcu daily for now. 13 Pulmonary prophylaxis: Incentive spirometry bedside.
[2017-01-11 15:29] LABS: Amorphous Sediment,Urine Occasional /hpf; Appearance,Urine Clear (Clear); Bilirubin,Urine Negative (Negative); Glucose,Urine (UA) Negative (Negative); Ketones,Urine Negative (Negative); Leukocyte Esterase,Urine Small (Negative); Mucus,Urine Rare /hpf; Nitrite,Urine Negative (Negative); Particle Count 2242; Protein,Urine Negative (Negative); RBC,Urine <1 /hpf (0-5); Specific Gravity,Urine 1.007 (1.001-1.035); Squamous Epithelial Cell,Urine <1 /hpf (0-4); UA Billing (MACRO vs. MICRO) MICRO; Urobilinogen,Urine <2.0 mg/dL (<2.0); WBC,Urine 5 /hpf (0-5)
--- NOTE | 2017-01-11 15:54 | P.PN ---
Subjective Principal diagnosis: Syncope This pleasant 86-year-old female continuing to be evaluated by the neurology service for syncopal episodes. She is being worked up by cardiology for potential cardiogenic causes for syncope. There is possibility that was medication induced in her antihypertensive has been changed. She does have a significant cardiac history. However, in the last couple weeks during her episodes of presyncope or syncope, there have been some questionable seizure- like movements of one or the other upper extremity. Neither she nor her daughter are aware of any significant postictal state. He has no previous history of seizures. There was no head injury. No recent infection. There've been no reported seizure like activity since her admission. An EEG has just been performed. Initial CT of the brain was normal. Objective - Vital Signs Vital signs: Vital Signs Temp 96.9 F L 01/11/17 08:21 Pulse 60 01/11/17 11:50 Resp 18 01/11/17 11:50 BP 138/61 01/11/17 11:50 Pulse Ox 99 01/11/17 11:50 Intake & Output 01/10/17 01/11/17 01/11/17 18:59 06:59 18:59 Intake Total 737 Output Total 900 Balance -900 737 Weight 49.442 kg 45.1 kg Intake: Oral 737 Output: Urine 900 Other: Voiding Method Toilet Toilet # Voids 1 2 # Bowel Movements 3 - Constitutional General appearance: Present: average body habitus, cooperative, no acute distress - EENT Eyes: Present: EOMI, PERRLA. Absent: abnormal pupil, ptosis ENT: Present: hearing grossly normal - Neck Neck: Present: normal ROM. Absent: rigidity - Respiratory Respiratory: negative: prolonged expiration, prolonged inspiration - Cardiovascular Rhythm: regular - Gastrointestinal General gastrointestinal: Absent: distended, tenderness - Neurologic Neurologic Comment(s): Patient is alert awake and oriented 3. Speech-language are normal. Strength is full in all 4 extremities. There is no sensory deficit. No tremors or seizure-like activities are seen. - Labs CBC & Chem 7: 01/11/17 06:15 01/11/17 06:15 Labs: Abnormal Lab Results - Last 24 Hours (Table) 01/10/17 01/10/17 01/11/17 Range/Units 18:41 21:12 02:53 Hgb (11.4-16.0) gm/dL BUN (7-17) mg/dL Glucose (74-99) mg/dL POC Glucose (mg/dL) 156 H 153 H 156 H (75-99) mg/dL AST (14-36) U/L ALT (9-52) U/L Alkaline Phosphatase (38-126) U/L Ur Leukocyte Esterase (Negative) Amorphous Sediment (None) /hpf Hyaline Casts (0-2) /lpf Urine Mucus (None) /hpf 01/11/17 01/11/17 01/11/17 Range/Units 06:05 06:15 06:15 Hgb 11.2 L (11.4-16.0) gm/dL BUN 29 H (7-17) mg/dL Glucose 67 L (74-99) mg/dL POC Glucose (mg/dL) 64 L (75-99) mg/dL AST 39 H (14-36) U/L ALT 63 H (9-52) U/L Alkaline Phosphatase 133 H (38-126) U/L Ur Leukocyte Esterase (Negative) Amorphous Sediment (None) /hpf Hyaline Casts (0-2) /lpf Urine Mucus (None) /hpf 01/11/17 01/11/17 Range/Units 12:19 15:15 Hgb (11.4-16.0) gm/dL BUN (7-17) mg/dL Glucose (74-99) mg/dL POC Glucose (mg/dL) 74 L (75-99) mg/dL AST (14-36) U/L ALT (9-52) U/L Alkaline Phosphatase (38-126) U/L Ur Leukocyte Esterase Small H (Negative) Amorphous Sediment Occasional H (None) /hpf Hyaline Casts 23 H (0-2) /lpf Urine Mucus Rare H (None) /hpf Assessment and Plan (1) Observed seizure-like activity Status: Acute (2) Syncope Status: Acute (3) CHF (congestive heart failure) Status: Chronic (4) HTN (hypertension) Status: Chronic (5) Ischemic cardiomyopathy Status: Chronic (6) S/P implantation of automatic cardioverter/defibrillator (AICD) Status: Chronic Plan: Her episode was likely cardiovascular in nature. An EEG has been performed and the data is available for us now for interpretation. Continue workup with cardiology. Continue neurological checks. Continue seizure precautions. We will continue to follow and make recommendations based on the above studies. If this possible seizure-like activity continues after her cardiac issues are stabilized, we may consider starting an antiepileptic medication versus working her up in outpatient setting. I have performed a history and physical on the above patient. I have reviewed the above note, and agree.
[2017-01-11 16:49] LABS: Glucose,Whole Blood 134 mg/dL (75-99)
[2017-01-11] MEDS: FUROSEMIDE 20 MG TAB PO SCH (18:34)
[2017-01-11 20:57] LABS: Glucose,Whole Blood 108 mg/dL (75-99)
[2017-01-11] MEDS ORDERED: DICYCLOMINE 10 MG CAP PO STA (21:45)
[2017-01-11] MEDS ORDERED: DICYCLOMINE 10 MG CAP PO PRN (21:45)
[2017-01-11] MEDS ORDERED: CHOLESTYRAMINE (WITH SUGAR) 4 GM PACKET PO STA (21:52)
[2017-01-11] MEDS: ATORVASTATIN 40 MG TAB PO SCH (21:57)
[2017-01-12 00:04] LABS: Glucose,Whole Blood 127 mg/dL (75-99)
[2017-01-12 05:55] LABS: Glucose,Whole Blood 79 mg/dL (75-99)
[2017-01-12] MEDS: INSULIN LISPRO (humaLOG) 300 UNIT/3 ML VIAL SQ SCH ×4 (06:37→20:51)
[2017-01-12] MEDS: LEVOTHYROXINE 100 MCG TAB PO SCH (06:39)
[2017-01-12] MEDS: CARVEDILOL 6.25 MG TAB PO SCH ×2 (06:39→17:51)
[2017-01-12 07:06] LABS: CHCM 32.9; HCT 31.8 % (34.0-46.0); HDW 2.37; HGB 10.4 gm/dL (11.4-16.0); MCH 28.9 pg (25.0-35.0); MCHC 32.7 g/dL (31.0-37.0); MCV 88.5 fL (80.0-100.0); Mean Platelet Volume 7.1; RDW 14.1 % (11.5-15.5); WBC 5.8 k/uL (3.8-10.6)
--- NOTE | 2017-01-12 07:12 | EEG ---
ELECTROENCEPHALOGRAM REPORT DATE OF SERVICE: 01/11/2017. REASON FOR TESTING: Syncope. DESCRIPTION OF THE PROCEDURE: This EEG was performed using a 21 channel digital electroencephalograph, following international 10-20 system. DESCRIPTION OF THE RECORDING: From the beginning of the tracing, and with patient's eyes closed, the background rhythm was mostly consisting of 9 Hz alpha frequency in the posterior occipital leads. No obvious asymmetry is seen. Occasional muscle and movement artifacts are seen. Photic stimulation was performed with a minimal driving response seen. No pathological waves were elicited. Hyperventilation was not performed. The patient remains awake throughout the tracing. No epileptiform discharges were seen. Her EKG lead showed a regular rate and rhythm. INTERPRETATION: This awake EEG can be considered within normal limits. There was no asymmetry seen. No epileptiform discharges were noticed. The absence of epileptiform discharges does not rule out the diagnosis of epilepsy, therefore clinical correlation is recommended. MMMARGARITAL / IJTalita: [id number] /
[2017-01-12 07:19] LABS: ALT 51 U/L (9-52); AST 31 U/L (14-36); Alkaline Phosphatase 101 U/L (38-126); Anion Gap 10 mmol/L; Blood Urea Nitrogen 31 mg/dL (7-17); Calcium 9.3 mg/dL (8.4-10.2); Carbon Dioxide 25 mmol/L (22-30); Chloride 102 mmol/L (98-107); Glucose 70 mg/dL (74-99); Non-African American GFR(MDRD) >60 (>60 ml/min/1.73 sqM); Potassium 4.9 mmol/L (3.5-5.1); Sodium 137 mmol/L (137-145); Total Bilirubin 0.6 mg/dL (0.2-1.3); Total Protein 7.2 g/dL (6.3-8.2)
[2017-01-12] MEDS: ASPIRIN 81 MG CHEW PO SCH (08:37)
[2017-01-12] MEDS: FUROSEMIDE 40 MG TAB PO SCH (08:37)
[2017-01-12] MEDS: MAGNESIUM OXIDE 400 MG TAB PO SCH (08:38)
[2017-01-12] MEDS: ISOSORBIDE DINITRATE 10 MG TAB PO SCH (08:38)
[2017-01-12] MEDS: REPAGLINIDE 1 MG TAB PO SCH ×3 (08:39→20:51)
[2017-01-12] MEDS: POTASSIUM CHLORIDE ER 20 MEQ TAB.ER PO SCH (08:39)
[2017-01-12 11:13] LABS: Glucose,Whole Blood 86 mg/dL (75-99)
--- NOTE | 2017-01-12 13:18 | P.PN ---
Subjective This is a pleasant 86-year-old lady with history of coronary artery disease status post CABG, ischemic cardiomyopathy, status post AICD, hypertension, and dyslipidemia. She presented to Hospital having had episodes of syncope. Most of the information is obtained from patient's daughter. According to the daughters, patient has been having episodes of low blood pressure. She was recently started on Entresto. Orthostatic blood pressures came in to be 138/61 supine, 126/57 sitting and 114/53 standing. ICD interrogation showed normal function and no tachyarrhythmias. She is feeling quite a better today, denies dizziness, syncope or near syncope. Her main complaint today is of diarrhea. Objective - Vital Signs Vital signs: Vital Signs Temp 97.4 F L 01/12/17 11:03 Pulse 60 01/12/17 11:03 Resp 16 01/12/17 08:00 BP 137/60 01/12/17 11:03 Pulse Ox 100 01/12/17 11:03 Intake & Output 01/11/17 01/12/17 01/12/17 18:59 06:59 18:59 Intake Total 857 Output Total 800 300 Balance 57 -300 Weight 51.3 kg 48.5 kg Intake: Oral 857 Output: Urine 800 300 Other: Voiding Method Toilet Toilet # Voids 2 2 # Bowel Movements 3 - Exam PHYSICAL EXAMINATION: HEENT: Head is atraumatic, normocephalic. Pupils equal, round. Neck is supple. There is no elevated jugular venous pressure. HEART EXAMINATION: Heart sounds regular, S1 and S2 normal with a systolic murmur. CHEST EXAMINATION: Lungs are clear to auscultation and precussion. No chest wall tenderness is noted on palpation or with deep breathing. ABDOMEN: Soft, nontender. Bowel sounds are heard. No organomegaly noted. EXTREMITIES: 2+ peripheral pulses with no evidence of peripheral edema and no calf tenderness noted. NEUROLOGIC patient is awake, alert and oriented x3. . - Labs CBC & Chem 7: 01/12/17 06:24 01/12/17 06:24 Labs: Abnormal Lab Results - Last 24 Hours (Table) 01/11/17 01/11/17 01/11/17 Range/Units 15:15 16:47 20:53 RBC (3.80-5.40) m/uL Hgb (11.4-16.0) gm/dL Hct (34.0-46.0) % BUN (7-17) mg/dL Glucose (74-99) mg/dL POC Glucose (mg/dL) 134 H 108 H (75-99) mg/dL Ur Leukocyte Esterase Small H (Negative) Amorphous Sediment Occasional H (None) /hpf Hyaline Casts 23 H (0-2) /lpf Urine Mucus Rare H (None) /hpf 01/12/17 01/12/17 01/12/17 Range/Units 00:02 06:24 06:24 RBC 3.60 L (3.80-5.40) m/uL Hgb 10.4 L (11.4-16.0) gm/dL Hct 31.8 L (34.0-46.0) % BUN 31 H (7-17) mg/dL Glucose 70 L (74-99) mg/dL POC Glucose (mg/dL) 127 H (75-99) mg/dL Ur Leukocyte Esterase (Negative) Amorphous Sediment (None) /hpf Hyaline Casts (0-2) /lpf Urine Mucus (None) /hpf Microbiology - Last 24 Hours (Table) 01/11/17 15:15 Urine Culture - Preliminary Urine,Clean Catch Assessment and Plan Plan: Assessment and plan #1 syncope, likely related to drop in blood pressure #2 coronary artery disease, status post CABG 3 ischemic cardiomyopathy, status post AICD Medications were reviewed, Entresto has been resumed. Hydralazine has been discontinued. She will follow-up with Dr. BELLA Cooney as an outpatient. The above dictated assessment and findings were discussed with signing physician. The impression and plan of care have been directed as dictated. Tasha Tran, Nurse Practitioner, acting as scribe for signing physician.
--- NOTE | 2017-01-12 16:34 | P.PN ---
Subjective This is an 86-year-old pleasant lady patient of Dr. Warren. Dr. BELLA Gregorio She has underlying history of ischemic cardiac myopathy, systolic CHF ejection fraction of 20%, status post AICD placement, hypothyroidism, diabetes mellitus type 2, hypertension, chronic right pleural effusion, COPD, who was sent in to the emergency room secondary to recurrent syncopal events. Patient would be noticed to be slumped over in her recliner, with drooling, is difficult to arouse, blood pressure was noted to be in the 60s according to the family members, blood sugar were all normal, otherwise there is no other focal neurologic deficits, patient had been witnessed to have decorticate posturing on the on the right side of the upper extremity when this occurs, this would be her fourth event. According to the family members be started 4 weeks ago the related to the initiation of Entresto, the medication would go go back down and thereafter be stabilized at the dosing and titrated up to a twice a day dose and the mold checker thereafter discontinued this after the second with titration on his the blood pressure remained to be low. Hydralazine was not discontinued at this point however lisinopril was discontinued. Her Lasix remain the same. The symptoms persisted for another 2 weeks with syncope lightheadedness, despite withdrawal of the drug 2 weeks in a row. Patient's family are more concerned as the patient took a longer time to arouse this time hence the ER evaluation at [facility]. There was some concern about the seizure-like activity and the decortication eyes there was no neurologist afternoon babysitter, patient was requested to be transferred to [facility]. As per family members urinalysis was performed and was unremarkable patient denies any headache no diplopia no isolated motor deficits in the upper and lower extremity, patient has chronic memory losses . No diarrhea no nausea no abdominal pain prior to admission. On the day of her stay in the hospital she had a few bouts of diarrhea she also has suprapubic pain on examination blood pressure is currently stable without any pressor agents, heart rate in the high 60s. Patient was in consultation by Dr. Delcid neurology and cardiology associates 01/12: Patient has diarrhea which has resolved as his morning required been till and Questran, no lightheadedness or dizziness no nausea no vomiting, expecting Entresto to be started in the morning hydralazine and losartan has been discontinued, Objective - Vital Signs Vital signs: Vital Signs Temp 97.4 F L 01/12/17 11:03 Pulse 60 01/12/17 11:03 Resp 16 01/12/17 08:00 BP 137/60 01/12/17 11:03 Pulse Ox 100 01/12/17 11:03 Intake & Output 01/11/17 01/12/17 01/12/17 18:59 06:59 18:59 Intake Total 857 Output Total 800 300 Balance 57 -300 Weight 51.3 kg 48.5 kg Intake: Oral 857 Output: Urine 800 300 Other: Voiding Method Toilet Toilet # Voids 2 2 1 # Bowel Movements 3 - Constitutional General appearance: Present: average body habitus, cooperative, no acute distress - EENT Eyes: Present: anicteric sclerae, PERRLA, dentition normal, normal appearance ENT: Present: hearing grossly normal, NA/AT, normal oropharynx - Neck Neck: Present: normal ROM - Respiratory Respiratory: bilateral: CTA, negative: diminished, dullness, rales, rhonchi - Cardiovascular Rhythm: regular Heart sounds: normal: S1 Abnormal Heart Sounds: Absent: systolic murmur, diastolic murmur, rub, S3 Gallop , S4 Gallop, click, other - Gastrointestinal General gastrointestinal: Present: normal bowel sounds, soft - Integumentary Integumentary: Present: normal - Neurologic Neurologic: Present: CNII-XII intact - Musculoskeletal Musculoskeletal: Present: gait normal, strength equal bilaterally - Psychiatric Psychiatric: Present: A&O x's 3, intact judgment & insight - Labs CBC & Chem 7: 01/12/17 06:24 01/12/17 06:24 Labs: Abnormal Lab Results - Last 24 Hours (Table) 01/11/17 01/11/17 01/12/17 Range/Units 16:47 20:53 00:02 RBC (3.80-5.40) m/uL Hgb (11.4-16.0) gm/dL Hct (34.0-46.0) % BUN (7-17) mg/dL Glucose (74-99) mg/dL POC Glucose (mg/dL) 134 H 108 H 127 H (75-99) mg/dL 01/12/17 01/12/17 Range/Units 06:24 06:24 RBC 3.60 L (3.80-5.40) m/uL Hgb 10.4 L (11.4-16.0) gm/dL Hct 31.8 L (34.0-46.0) % BUN 31 H (7-17) mg/dL Glucose 70 L (74-99) mg/dL POC Glucose (mg/dL) (75-99) mg/dL Microbiology - Last 24 Hours (Table) 01/11/17 15:15 Urine Culture - Preliminary Urine,Clean Catch Assessment and Plan Plan: 1 syncope usuallyl in the morning after medication highly suspicious of medication induced hypotension occurrences are intermittent over the past 4 weeks this would be the fourth occurrence. However seizures cannot be ruled out , EEG of the brain and neurology consultation cardiology will be seeing the patient, doubt hypoglycemic events during this occurrences, blood pressure medications would be titrated again and with the resumption of Entresto 1 tab bid, would discontinue hydralazine, and lisinopril. Entresto would be started on on January 13 to allow transition from an Jacob to entresto. Discussed with cardiology team and family members Last echocardiogram performed at [facility], September 2016 EF 15-20%, moderate to severe tricuspid regurgitation, right ventricle systolic pressure 46 , severe MR and no pericardial effusion no aortic stenosis noted, has aortic sclerosis and moderate aortic regurgitation 2Chronic CHF exacerbation with mixed systolic and diastolic component with severe systolic dysfunction ejection fraction 20% currently compensated. patient will be seen consultation by consultation by cardiology patient currently is on Coreg Lipitor aspirin 81 her last ultrasound shows ejection fraction of 20 percent September 2016. Troponins are normal 3. Prior non-ST [place] in 02/04/2015 status with critical multivessel coronary disease for which they have declined CABG procedures as recommended by Dr. Swan in the past January 2015: 4. History of ischemic cardiomyopathy ejection fraction of 20% with high degree A-V block requiring dual-chamber ICD implantation 01/30/2015 5 diabetes mellitus type 2 on Prandin with meals and Accu-Chek 6. COPD without any exacerbation 7. Hypertensive cardiovascular disease with ischemic cardiomyopathy, medication as above 8. Hypothyroidism on levothyroxine 9. CAD with previous CABG ABG at [facility] 10. History of parotitis diagnosed also in January 2015 no recurrence at this time 11 GERD: Will add Pepcid 20 mg daily. 12. Diarrhea transient C. diff negative symptoms improved this morning 9: 8 12 DVT prophylaxis: Patient was started on Lanoxin 30 mg subcu daily for now. 13 Pulmonary prophylaxis: Incentive spirometry bedside.
[2017-01-12 17:05] LABS: Glucose,Whole Blood 100 mg/dL (75-99)
--- NOTE | 2017-01-12 17:42 | P.PN ---
Subjective Principal diagnosis: Patient is a pleasant 86-year-old female who is being followed by the neurology service for syncopal episode. Patient had a witnessed episode of loss of consciousness with right upper extremity jerking. There are no post ictal symptoms described. Patient has no history of seizures. Patient is being followed by cardiology for possible cardiogenic cause of syncope. Patient was taken to [facility] and underwent a computed tomography scan of the brain which was normal according to the chart. Patient does have history of recurrent episodes of hypotension. Patient has history of cardiac disease with pacemaker. She's not had any recurrence of any presyncopal or syncopal episodes since admission. At the time of my evaluation, patient is resting comfortably in bed and appears to be in no acute distress. Objective - Vital Signs Vital signs: Vital Signs Temp 97.4 F L 01/12/17 11:03 Pulse 60 01/12/17 11:03 Resp 16 01/12/17 08:00 BP 137/60 01/12/17 11:03 Pulse Ox 100 01/12/17 11:03 Intake & Output 01/11/17 01/12/17 01/12/17 18:59 06:59 18:59 Intake Total 857 Output Total 800 300 Balance 57 -300 Weight 51.3 kg 48.5 kg Intake: Oral 857 Output: Urine 800 300 Other: Voiding Method Toilet Toilet # Voids 2 2 1 # Bowel Movements 3 - Exam PHYSICAL EXAM: GENERAL APPEARANCE: Patient is a well-developed female who appears to be in no acute distress. HEENT: Normocephalic, atraumatic, no facial asymmetry is seen. Neck is supple with no masses felt. CARDIOVASCULAR: Regular rate and rhythm. ABDOMEN: Nontender, nondistended. EXTREMITIES: Show no edema or clubbing. NEUROLOGICAL EXAM: Patient is awake, alert, and oriented 3. Speech and language are normal. Strength is full in all 4 extremities. No pronator drift is seen. Sensory exam is normal to light touch in all 4 extremities. No facial asymmetry is seen on cranial nerve testing. No tremors or seizure-like activity is noted. - Labs CBC & Chem 7: 01/12/17 06:24 01/12/17 06:24 Labs: Abnormal Lab Results - Last 24 Hours (Table) 01/11/17 01/12/17 01/12/17 Range/Units 20:53 00:02 06:24 RBC 3.60 L (3.80-5.40) m/uL Hgb 10.4 L (11.4-16.0) gm/dL Hct 31.8 L (34.0-46.0) % BUN (7-17) mg/dL Glucose (74-99) mg/dL POC Glucose (mg/dL) 108 H 127 H (75-99) mg/dL 01/12/17 01/12/17 Range/Units 06:24 17:04 RBC (3.80-5.40) m/uL Hgb (11.4-16.0) gm/dL Hct (34.0-46.0) % BUN 31 H (7-17) mg/dL Glucose 70 L (74-99) mg/dL POC Glucose (mg/dL) 100 H (75-99) mg/dL Microbiology - Last 24 Hours (Table) 01/11/17 15:15 Urine Culture - Preliminary Urine,Clean Catch Assessment and Plan Plan: The patient's witnessed episode of loss of consciousness is likely cardiovascular in nature. Patient's symptoms are consistent with hypotensive episode. EEG was done and is normal. There've been no further episodes reported since admission. Continue management per cardiology. As you recall, CT of the brain was normal at [facility]. Patient is stable from a neurological standpoint. I will continue to follow with you on an as- needed basis. Feel free to call with any questions or concerns. I performed an examination of the patient and discussed the management with the LEVELER HELPER. I have reviewed the LEVELER HELPER notes and agree with the findings and plan of care.
[2017-01-12] MEDS: FUROSEMIDE 20 MG TAB PO SCH (17:51)
[2017-01-12 20:48] LABS: Glucose,Whole Blood 118 mg/dL (75-99)
[2017-01-12] MEDS: ATORVASTATIN 40 MG TAB PO SCH (20:51)
[2017-01-12 23:30] LABS: Glucose,Whole Blood 92 mg/dL (75-99)
[2017-01-13] MEDS: LEVOTHYROXINE 100 MCG TAB PO SCH (06:53)
[2017-01-13 07:05] LABS: Basophils % (A) 1 %; CH 30.2; CHCM 33.9; Eosinophils # (A) 0.2 k/uL (0-0.7); Eosinophils % (A) 4 %; HCT 32.4 % (34.0-46.0); HDW 2.41; HGB 10.7 gm/dL (11.4-16.0); Luc # (Auto) 0.16; Luc % (Auto) 3; Lymphocytes # (A) 1.6 k/uL (1.0-4.8); Lymphocytes % (A) 28 %; MCH 29.6 pg (25.0-35.0); MCV 89.8 fL (80.0-100.0); Mean Platelet Volume 7.4; Monocytes # (A) 0.5 k/uL (0-1.0); Monocytes % (A) 9 %; Neutrophils # (A) 3.1 k/uL (1.3-7.7); Neutrophils % (A) 56 %; RBC 3.61 m/uL (3.80-5.40); RDW 14.6 % (11.5-15.5); WBC 5.6 k/uL (3.8-10.6); WBC (Perox) 6.05
[2017-01-13 07:18] LABS: Glucose,Whole Blood 86 mg/dL (75-99)
[2017-01-13 07:37] LABS: Anion Gap 8 mmol/L; Blood Urea Nitrogen 24 mg/dL (7-17); Calcium 9.5 mg/dL (8.4-10.2); Carbon Dioxide 25 mmol/L (22-30); Chloride 103 mmol/L (98-107); Glucose 79 mg/dL (74-99); Non-African American GFR(MDRD) >60 (>60 ml/min/1.73 sqM); Potassium 4.8 mmol/L (3.5-5.1); Sodium 136 mmol/L (137-145)
[2017-01-13] MEDS: SACUBITRIL/VALSARTAN 24 MG-26 MG TABLET PO SCH ×2 (07:45→21:04)
[2017-01-13] MEDS: REPAGLINIDE 1 MG TAB PO SCH ×3 (07:45→17:44)
[2017-01-13] MEDS: FUROSEMIDE 40 MG TAB PO SCH (07:45)
[2017-01-13] MEDS: MAGNESIUM OXIDE 400 MG TAB PO SCH (07:45)
[2017-01-13] MEDS: INSULIN LISPRO (humaLOG) 300 UNIT/3 ML VIAL SQ SCH ×4 (07:45→21:03)
[2017-01-13] MEDS: CARVEDILOL 6.25 MG TAB PO SCH ×2 (07:45→17:44)
[2017-01-13] MEDS: ISOSORBIDE DINITRATE 10 MG TAB PO SCH (07:45)
[2017-01-13] MEDS: POTASSIUM CHLORIDE ER 20 MEQ TAB.ER PO SCH (07:45)
[2017-01-13] MEDS: ASPIRIN 81 MG CHEW PO SCH (07:45)
[2017-01-13 11:27] LABS: Glucose,Whole Blood 88 mg/dL (75-99)
--- NOTE | 2017-01-13 16:22 | P.PN ---
Subjective This is an 86-year-old pleasant lady patient of Dr. Warren. Dr. BELLA Gregorio She has underlying history of ischemic cardiac myopathy, systolic CHF ejection fraction of 20%, status post AICD placement, hypothyroidism, diabetes mellitus type 2, hypertension, chronic right pleural effusion, COPD, who was sent in to the emergency room secondary to recurrent syncopal events. Patient would be noticed to be slumped over in her recliner, with drooling, is difficult to arouse, blood pressure was noted to be in the 60s according to the family members, blood sugar were all normal, otherwise there is no other focal neurologic deficits, patient had been witnessed to have decorticate posturing on the on the right side of the upper extremity when this occurs, this would be her fourth event. According to the family members be started 4 weeks ago the related to the initiation of Entresto, the medication would go go back down and thereafter be stabilized at the dosing and titrated up to a twice a day dose and the early head start director thereafter discontinued this after the second with titration on his the blood pressure remained to be low. Hydralazine was not discontinued at this point however lisinopril was discontinued. Her Lasix remain the same. The symptoms persisted for another 2 weeks with syncope lightheadedness, despite withdrawal of the drug 2 weeks in a row. Patient's family are more concerned as the patient took a longer time to arouse this time hence the ER evaluation at [facility]. There was some concern about the seizure-like activity and the decortication eyes there was no neurologist superintendent plant protection, patient was requested to be transferred to [facility]. As per family members urinalysis was performed and was unremarkable patient denies any headache no diplopia no isolated motor deficits in the upper and lower extremity, patient has chronic memory losses . No diarrhea no nausea no abdominal pain prior to admission. On the day of her stay in the hospital she had a few bouts of diarrhea she also has suprapubic pain on examination blood pressure is currently stable without any pressor agents, heart rate in the high 60s. Patient was in consultation by Dr. Delcid neurology and cardiology associates 01/12: Patient has diarrhea which has resolved as his morning required been till and Questran, no lightheadedness or dizziness no nausea no vomiting, expecting Entresto to be started in the morning hydralazine and losartan has been discontinued, 01/13: Patient's doing okay without any symptoms, and entresto started this morning. Orthostatics is closely monitored, if patient continues to do well, we 'll discharge in the morning. No hypoglycemia noted Objective - Vital Signs Vital signs: Vital Signs Temp 97.7 F 01/13/17 07:00 Pulse 60 01/13/17 09:00 Resp 16 01/13/17 07:00 BP 129/58 01/13/17 09:00 Pulse Ox 100 01/13/17 07:00 Intake & Output 01/12/17 01/13/17 01/13/17 18:59 06:59 18:59 Weight 48.5 kg Other: Voiding Method Toilet # Voids 1 3 - Constitutional General appearance: Present: cooperative, no acute distress - EENT Eyes: Present: anicteric sclerae, EOMI, PERRLA, normal appearance ENT: Present: NA/AT, normal oropharynx - Neck Neck: Present: normal ROM. Absent: lymphadenopathy, other, rigidity, stridor, thyromegaly - Respiratory Respiratory: bilateral: CTA, negative: diminished, dullness, rales, rhonchi, wheezing - Cardiovascular Rhythm: regular Heart sounds: normal: S1, S2 Abnormal Heart Sounds: Present: systolic murmur. Absent: diastolic murmur, rub , S3 Gallop, S4 Gallop, click, other - Gastrointestinal General gastrointestinal: Present: normal bowel sounds, soft - Integumentary Integumentary: Present: normal, normal turgor - Neurologic Neurologic: Present: CNII-XII intact - Musculoskeletal Musculoskeletal: Present: gait normal, strength equal bilaterally - Psychiatric Psychiatric: Present: A&O x's 3, appropriate affect, intact judgment & insight - Labs CBC & Chem 7: 01/13/17 06:38 01/13/17 06:38 Labs: Abnormal Lab Results - Last 24 Hours (Table) 01/12/17 01/12/17 01/13/17 Range/Units 17:04 20:46 06:38 RBC 3.61 L (3.80-5.40) m/uL Hgb 10.7 L (11.4-16.0) gm/dL Hct 32.4 L (34.0-46.0) % Sodium (137-145) mmol/L BUN (7-17) mg/dL POC Glucose (mg/dL) 100 H 118 H (75-99) mg/dL 01/13/17 Range/Units 06:38 RBC (3.80-5.40) m/uL Hgb (11.4-16.0) gm/dL Hct (34.0-46.0) % Sodium 136 L (137-145) mmol/L BUN 24 H (7-17) mg/dL POC Glucose (mg/dL) (75-99) mg/dL Microbiology - Last 24 Hours (Table) 01/11/17 15:15 Urine Culture - Final Urine,Clean Catch Assessment and Plan Plan: 1 syncope usuallyl in the morning after medication highly suspicious of medication induced hypotension occurrences are intermittent over the past 4 weeks this would be the fourth occurrence. However seizures cannot be ruled out , EEG of the brain and neurology consultation cardiology will be seeing the patient, doubt hypoglycemic events during this occurrences, blood pressure medications would be titrated again and with the resumption of Entresto 1 tab bid, would discontinue hydralazine, and lisinopril. Entresto would be started on on January 13 to allow transition from an Jacob to entresto. Discussed with cardiology team and family members Last echocardiogram performed at [facility], September 2016 EF 15-20%, moderate to severe tricuspid regurgitation, right ventricle systolic pressure 46 , severe MR and no pericardial effusion no aortic stenosis noted, has aortic sclerosis and moderate aortic regurgitation 2Chronic CHF exacerbation with mixed systolic and diastolic component with severe systolic dysfunction ejection fraction 20% currently compensated. patient will be seen consultation by consultation by cardiology patient currently is on Coreg Lipitor aspirin 81 her last ultrasound shows ejection fraction of 20 percent September 2016. Troponins are normal 3. Prior non-ST [place] in 02/04/2015 status with critical multivessel coronary disease for which they have declined CABG procedures as recommended by Dr. Swan in the past January 2015: 4. History of ischemic cardiomyopathy ejection fraction of 20% with high degree A-V block requiring dual-chamber ICD implantation 01/30/2015 5 diabetes mellitus type 2 on Prandin with meals and Accu-Chek 6. COPD without any exacerbation 7. Hypertensive cardiovascular disease with ischemic cardiomyopathy, medication as above 8. Hypothyroidism on levothyroxine 9. CAD with previous CABG ABG at [facility] 10. History of parotitis diagnosed also in January 2015 no recurrence at this time 11 GERD: Will add Pepcid 20 mg daily. 12. Diarrhea transient C. diff negative symptoms improved this morning 9: 8 12 DVT prophylaxis: Patient was started on Lanoxin 30 mg subcu daily for now. 13 Pulmonary prophylaxis: Incentive spirometry bedside.
[2017-01-13 17:23] LABS: Glucose,Whole Blood 125 mg/dL (75-99)
[2017-01-13] MEDS: FUROSEMIDE 20 MG TAB PO SCH (17:44)
[2017-01-13] MEDS: MIDODRINE 5 MG TAB PO SCH (17:44)
[2017-01-13 20:23] LABS: Glucose,Whole Blood 119 mg/dL (75-99)
[2017-01-13] MEDS: ATORVASTATIN 40 MG TAB PO SCH (21:04)
[2017-01-13] MEDS: ACETAMINOPHEN TAB 325 MG TAB PO PRN (21:10)
[2017-01-14] MEDS: LEVOTHYROXINE 100 MCG TAB PO SCH (06:29)
[2017-01-14 06:54] LABS: Basophils % (A) 0 %; CH 29.9; CHCM 33.4; Eosinophils # (A) 0.2 k/uL (0-0.7); Eosinophils % (A) 5 %; HCT 33.5 % (34.0-46.0); HDW 2.39; HGB 10.9 gm/dL (11.4-16.0); Luc # (Auto) 0.11; Luc % (Auto) 2; Lymphocytes # (A) 1.5 k/uL (1.0-4.8); Lymphocytes % (A) 32 %; MCH 29.5 pg (25.0-35.0); MCHC 32.7 g/dL (31.0-37.0); MCV 90.2 fL (80.0-100.0); Mean Platelet Volume 7.8; Monocytes # (A) 0.5 k/uL (0-1.0); Monocytes % (A) 10 %; Neutrophils # (A) 2.4 k/uL (1.3-7.7); Neutrophils % (A) 51 %; RBC 3.71 m/uL (3.80-5.40); RDW 14.7 % (11.5-15.5); WBC 4.8 k/uL (3.8-10.6); WBC (Perox) 5.06
[2017-01-14 07:15] LABS: Anion Gap 8 mmol/L; Blood Urea Nitrogen 33 mg/dL (7-17); Calcium 9.3 mg/dL (8.4-10.2); Carbon Dioxide 25 mmol/L (22-30); Chloride 106 mmol/L (98-107); Glucose 65 mg/dL (74-99); Non-African American GFR(MDRD) >60 (>60 ml/min/1.73 sqM); Sodium 139 mmol/L (137-145)
[2017-01-14 07:29] LABS: Potassium 5.1 mmol/L (3.5-5.1)
[2017-01-14 07:54] LABS: Glucose,Whole Blood 70 mg/dL (75-99)
[2017-01-14] MEDS: SACUBITRIL/VALSARTAN 24 MG-26 MG TABLET PO SCH ×2 (08:41→20:09)
[2017-01-14] MEDS: ISOSORBIDE DINITRATE 10 MG TAB PO SCH (08:41)
[2017-01-14] MEDS: MAGNESIUM OXIDE 400 MG TAB PO SCH (08:41)
[2017-01-14] MEDS: POTASSIUM CHLORIDE ER 20 MEQ TAB.ER PO SCH (08:41)
[2017-01-14] MEDS: FUROSEMIDE 40 MG TAB PO SCH (08:42)
[2017-01-14] MEDS: ASPIRIN 81 MG CHEW PO SCH (08:42)
[2017-01-14] MEDS: REPAGLINIDE 1 MG TAB PO SCH ×3 (08:42→17:44)
[2017-01-14] MEDS: INSULIN LISPRO (humaLOG) 300 UNIT/3 ML VIAL SQ SCH ×5 (08:43→20:22)
[2017-01-14] MEDS: CARVEDILOL 6.25 MG TAB PO SCH ×2 (08:43→17:44)
[2017-01-14] MEDS: MIDODRINE 5 MG TAB PO SCH (08:43)
[2017-01-14] MEDS: ACETAMINOPHEN TAB 325 MG TAB PO PRN (10:05)
[2017-01-14 11:07] LABS: Glucose,Whole Blood 133 mg/dL (75-99)
[2017-01-14 11:36] LABS: Glucose,Whole Blood 185 mg/dL (75-99)
--- NOTE | 2017-01-14 15:43 | P.PN ---
Subjective This is an 86-year-old pleasant lady patient of Dr. Warren. Dr. BELLA Gregorio She has underlying history of ischemic cardiac myopathy, systolic CHF ejection fraction of 20%, status post AICD placement, hypothyroidism, diabetes mellitus type 2, hypertension, chronic right pleural effusion, COPD, who was sent in to the emergency room secondary to recurrent syncopal events. Patient would be noticed to be slumped over in her recliner, with drooling, is difficult to arouse, blood pressure was noted to be in the 60s according to the family members, blood sugar were all normal, otherwise there is no other focal neurologic deficits, patient had been witnessed to have decorticate posturing on the on the right side of the upper extremity when this occurs, this would be her fourth event. According to the family members be started 4 weeks ago the related to the initiation of Entresto, the medication would go go back down and thereafter be stabilized at the dosing and titrated up to a twice a day dose and the pbx inspector thereafter discontinued this after the second with titration on his the blood pressure remained to be low. Hydralazine was not discontinued at this point however lisinopril was discontinued. Her Lasix remain the same. The symptoms persisted for another 2 weeks with syncope lightheadedness, despite withdrawal of the drug 2 weeks in a row. Patient's family are more concerned as the patient took a longer time to arouse this time hence the ER evaluation at [facility]. There was some concern about the seizure-like activity and the decortication eyes there was no neurologist business solutions director, patient was requested to be transferred to [facility]. As per family members urinalysis was performed and was unremarkable patient denies any headache no diplopia no isolated motor deficits in the upper and lower extremity, patient has chronic memory losses . No diarrhea no nausea no abdominal pain prior to admission. On the day of her stay in the hospital she had a few bouts of diarrhea she also has suprapubic pain on examination blood pressure is currently stable without any pressor agents, heart rate in the high 60s. Patient was in consultation by Dr. Delcid neurology and cardiology associates 01/12: Patient has diarrhea which has resolved as his morning required been till and Questran, no lightheadedness or dizziness no nausea no vomiting, expecting Entresto to be started in the morning hydralazine and losartan has been discontinued, 01/13: Patient's doing okay without any symptoms, and entresto started this morning. Orthostatics is closely monitored, if patient continues to do well, we 'll discharge in the morning. No hypoglycemia noted 01/14. patient complained of headache after breakfast with minimal nausea, no abdominal pain. pt not ready for discharge today patient request to stay 1 more day. proamatine discontinued today. no hypotension, no new adjustment on entresto Objective - Vital Signs Vital signs: Vital Signs Temp 97.8 F 01/14/17 06:32 Pulse 60 01/14/17 09:00 Resp 18 01/14/17 06:32 BP 129/58 01/14/17 09:00 Pulse Ox 96 01/14/17 06:32 Intake & Output 01/13/17 01/14/17 01/14/17 18:59 06:59 18:59 Other: Voiding Method Toilet Toilet # Voids 1 - Constitutional General appearance: Present: cooperative, no acute distress - EENT Eyes: Present: anicteric sclerae, EOMI, PERRLA, normal appearance ENT: Present: NA/AT, normal oropharynx - Neck Neck: Present: normal ROM - Respiratory Respiratory: bilateral: CTA, negative: diminished, dullness, rales - Cardiovascular Rhythm: regular Heart sounds: normal: S1, S2 Abnormal Heart Sounds: Present: systolic murmur. Absent: diastolic murmur, rub , S3 Gallop, S4 Gallop, click, other - Gastrointestinal General gastrointestinal: Present: normal bowel sounds, soft - Integumentary Integumentary: Present: normal, normal turgor - Neurologic Neurologic: Present: CNII-XII intact - Musculoskeletal Musculoskeletal: Present: gait normal, strength equal bilaterally - Psychiatric Psychiatric: Present: A&O x's 3, appropriate affect, intact judgment & insight - Labs CBC & Chem 7: 01/14/17 06:15 01/14/17 06:15 Labs: Abnormal Lab Results - Last 24 Hours (Table) 01/13/17 01/13/17 01/14/17 Range/Units 17:21 20:21 06:15 RBC 3.71 L (3.80-5.40) m/uL Hgb 10.9 L (11.4-16.0) gm/dL Hct 33.5 L (34.0-46.0) % BUN (7-17) mg/dL Glucose (74-99) mg/dL POC Glucose (mg/dL) 125 H 119 H (75-99) mg/dL 01/14/17 01/14/17 01/14/17 Range/Units 06:15 07:33 11:05 RBC (3.80-5.40) m/uL Hgb (11.4-16.0) gm/dL Hct (34.0-46.0) % BUN 33 H (7-17) mg/dL Glucose 65 L (74-99) mg/dL POC Glucose (mg/dL) 70 L 133 H (75-99) mg/dL 01/14/17 Range/Units 11:12 RBC (3.80-5.40) m/uL Hgb (11.4-16.0) gm/dL Hct (34.0-46.0) % BUN (7-17) mg/dL Glucose (74-99) mg/dL POC Glucose (mg/dL) 185 H (75-99) mg/dL Assessment and Plan Plan: 1 syncope usuallyl in the morning after medication highly suspicious of medication induced hypotension occurrences are intermittent over the past 4 weeks this would be the fourth occurrence. However seizures cannot be ruled out , EEG of the brain and neurology consultation cardiology will be seeing the patient, doubt hypoglycemic events during this occurrences, blood pressure medications would be titrated again and with the resumption of Entresto 1 tab bid, would discontinue hydralazine, and lisinopril. Entresto would be started on on January 13 to allow transition from an Jacob to entresto. Discussed with cardiology team and family members Last echocardiogram performed at [facility], September 2016 EF 15-20%, moderate to severe tricuspid regurgitation, right ventricle systolic pressure 46 , severe MR and no pericardial effusion no aortic stenosis noted, has aortic sclerosis and moderate aortic regurgitation 2Chronic CHF exacerbation with mixed systolic and diastolic component with severe systolic dysfunction ejection fraction 20% currently compensated. patient will be seen consultation by consultation by cardiology patient currently is on Coreg Lipitor aspirin 81 her last ultrasound shows ejection fraction of 20 percent September 2016. Troponins are normal 3. orthostatic hypotension marginal, midodrine 5 mg tid, started yesterday, total 3 doses given so far, will hold off its use for now and monitor for persistence of orthostasis 4. Prior non-ST [place] in 02/04/2015 status with critical multivessel coronary disease for which they have declined CABG procedures as recommended by Dr. Swan in the past January 2015: 5. History of ischemic cardiomyopathy ejection fraction of 20% with high degree A-V block requiring dual-chamber ICD implantation 01/30/2015 6 diabetes mellitus type 2 on Prandin with meals and Accu-Chek 7. COPD without any exacerbation 8. Hypertensive cardiovascular disease with ischemic cardiomyopathy, medication as above 9. Hypothyroidism on levothyroxine 10. CAD with previous CABG ABG at 11. History of parotitis diagnosed also in January 2015 no recurrence at this time 12 GERD: Will add Pepcid 20 mg daily. 13. Diarrhea transient C. diff negative symptoms improved this morning 9: 8 14 DVT prophylaxis: Patient was started on Lanoxin 30 mg subcu daily for now. 15 Pulmonary prophylaxis: Incentive spirometry bedside.
[2017-01-14 17:25] LABS: Glucose,Whole Blood 177 mg/dL (75-99)
[2017-01-14] MEDS: FUROSEMIDE 20 MG TAB PO SCH (17:44)
[2017-01-14] MEDS: ATORVASTATIN 40 MG TAB PO SCH (20:09)
[2017-01-14 20:24] LABS: Glucose,Whole Blood 169 mg/dL (75-99)
[2017-01-15] MEDS: LEVOTHYROXINE 100 MCG TAB PO SCH (06:26)
[2017-01-15 07:15] LABS: Basophils % (A) 0 %; CH 29.9; CHCM 33.3; Eosinophils # (A) 0.3 k/uL (0-0.7); Eosinophils % (A) 5 %; HCT 33.4 % (34.0-46.0); HDW 2.39; HGB 10.9 gm/dL (11.4-16.0); Luc % (Auto) 2; Lymphocytes # (A) 1.5 k/uL (1.0-4.8); Lymphocytes % (A) 29 %; MCH 29.4 pg (25.0-35.0); MCHC 32.6 g/dL (31.0-37.0); MCV 90.3 fL (80.0-100.0); Mean Platelet Volume 7.6; Monocytes # (A) 0.5 k/uL (0-1.0); Monocytes % (A) 9 %; Neutrophils # (A) 2.9 k/uL (1.3-7.7); Neutrophils % (A) 55 %; RDW 14.6 % (11.5-15.5); WBC 5.3 k/uL (3.8-10.6); WBC (Perox) 5.42
[2017-01-15 07:37] LABS: Anion Gap 7 mmol/L; Blood Urea Nitrogen 32 mg/dL (7-17); Calcium 9.2 mg/dL (8.4-10.2); Carbon Dioxide 24 mmol/L (22-30); Chloride 107 mmol/L (98-107); Glucose 87 mg/dL (74-99); Non-African American GFR(MDRD) >60 (>60 ml/min/1.73 sqM); Potassium 5.2 mmol/L (3.5-5.1); Sodium 138 mmol/L (137-145)
[2017-01-15 07:56] LABS: Glucose,Whole Blood 98 mg/dL (75-99)
[2017-01-15] MEDS: ACETAMINOPHEN TAB 325 MG TAB PO PRN (08:05)
[2017-01-15] MEDS: ISOSORBIDE DINITRATE 10 MG TAB PO SCH (08:09)
[2017-01-15] MEDS: REPAGLINIDE 1 MG TAB PO SCH ×3 (08:09→17:55)
[2017-01-15] MEDS: FUROSEMIDE 40 MG TAB PO SCH (08:09)
[2017-01-15] MEDS: CARVEDILOL 6.25 MG TAB PO SCH ×2 (08:10→17:55)
[2017-01-15] MEDS: POTASSIUM CHLORIDE ER 20 MEQ TAB.ER PO SCH (08:10)
[2017-01-15] MEDS: MAGNESIUM OXIDE 400 MG TAB PO SCH (08:10)
[2017-01-15] MEDS: SACUBITRIL/VALSARTAN 24 MG-26 MG TABLET PO SCH ×2 (08:10→20:23)
[2017-01-15] MEDS: ASPIRIN 81 MG CHEW PO SCH (08:10)
[2017-01-15] MEDS: INSULIN LISPRO (humaLOG) 300 UNIT/3 ML VIAL SQ SCH ×4 (08:11→20:22)
[2017-01-15 11:15] VITALS: BMI 20.9
[2017-01-15 11:28] LABS: Glucose,Whole Blood 156 mg/dL (75-99)
[2017-01-15] MEDS: MIDODRINE 5 MG TAB PO SCH ×2 (13:28→17:55)
--- NOTE | 2017-01-15 15:00 | P.PN ---
Subjective This is an 86-year-old pleasant lady patient of Dr. Warren. Dr. BELLA Gregorio She has underlying history of ischemic cardiac myopathy, systolic CHF ejection fraction of 20%, status post AICD placement, hypothyroidism, diabetes mellitus type 2, hypertension, chronic right pleural effusion, COPD, who was sent in to the emergency room secondary to recurrent syncopal events. Patient would be noticed to be slumped over in her recliner, with drooling, is difficult to arouse, blood pressure was noted to be in the 60s according to the family members, blood sugar were all normal, otherwise there is no other focal neurologic deficits, patient had been witnessed to have decorticate posturing on the on the right side of the upper extremity when this occurs, this would be her fourth event. According to the family members be started 4 weeks ago the related to the initiation of Entresto, the medication would go go back down and thereafter be stabilized at the dosing and titrated up to a twice a day dose and the cissp thereafter discontinued this after the second with titration on his the blood pressure remained to be low. Hydralazine was not discontinued at this point however lisinopril was discontinued. Her Lasix remain the same. The symptoms persisted for another 2 weeks with syncope lightheadedness, despite withdrawal of the drug 2 weeks in a row. Patient's family are more concerned as the patient took a longer time to arouse this time hence the ER evaluation at [facility]. There was some concern about the seizure-like activity and the decortication eyes there was no neurologist supervisor home restoration service, patient was requested to be transferred to [facility]. As per family members urinalysis was performed and was unremarkable patient denies any headache no diplopia no isolated motor deficits in the upper and lower extremity, patient has chronic memory losses . No diarrhea no nausea no abdominal pain prior to admission. On the day of her stay in the hospital she had a few bouts of diarrhea she also has suprapubic pain on examination blood pressure is currently stable without any pressor agents, heart rate in the high 60s. Patient was in consultation by Dr. Delcid neurology and cardiology associates 01/12: Patient has diarrhea which has resolved as his morning required been till and Questran, no lightheadedness or dizziness no nausea no vomiting, expecting Entresto to be started in the morning hydralazine and losartan has been discontinued, 01/13: Patient's doing okay without any symptoms, and entresto started this morning. Orthostatics is closely monitored, if patient continues to do well, we 'll discharge in the morning. No hypoglycemia noted 01/14. patient complained of headache after breakfast with minimal nausea, no abdominal pain. pt not ready for discharge today patient request to stay 1 more day. proamatine discontinued today. no hypotension, no new adjustment on entresto 01/15: Patient was seen and evaluated today. Family is at the bedside. Patient complains of headache, still noted to have positive orthostatics upon standing. Midodrine will be added 5 mg 3 times a day. Will monitor her orthostatics closely, she will continue on the Entresto. Objective - Vital Signs Vital signs: Vital Signs Temp 97.7 F 01/15/17 07:00 Pulse 63 01/15/17 07:00 Resp 20 01/15/17 08:00 BP 130/60 01/15/17 07:00 Pulse Ox 98 01/15/17 07:00 Intake & Output 01/14/17 01/15/17 01/15/17 18:59 06:59 18:59 Intake Total 290 Balance 290 Weight 48.5 kg Intake: Oral 290 Other: Voiding Method Toilet Toilet Toilet # Voids 1 2 - Exam - Constitutional General appearance: Present: cooperative, no acute distress - EENT Eyes: Present: anicteric sclerae, EOMI, PERRLA, normal appearance ENT: Present: NA/AT, normal oropharynx - Neck Neck: Present: normal ROM - Respiratory Respiratory: bilateral: CTA, negative: diminished, dullness, rales - Cardiovascular Rhythm: regular Heart sounds: normal: S1, S2 Abnormal Heart Sounds: Present: systolic murmur. Absent: diastolic murmur, rub , S3 Gallop, S4 Gallop, click, other - Gastrointestinal General gastrointestinal: Present: normal bowel sounds, soft - Integumentary Integumentary: Present: normal, normal turgor - Neurologic Neurologic: Present: CNII-XII intact - Musculoskeletal Musculoskeletal: Present: gait normal, strength equal bilaterally - Psychiatric Psychiatric: Present: A&O x's 3, appropriate affect, intact judgment & insight - Labs CBC & Chem 7: 01/15/17 06:32 01/15/17 06:32 Labs: Abnormal Lab Results - Last 24 Hours (Table) 01/14/17 01/14/17 01/14/17 Range/Units 11:05 11:12 17:10 RBC (3.80-5.40) m/uL Hgb (11.4-16.0) gm/dL Hct (34.0-46.0) % Potassium (3.5-5.1) mmol/L BUN (7-17) mg/dL POC Glucose (mg/dL) 133 H 185 H 177 H (75-99) mg/dL 01/14/17 01/15/17 01/15/17 Range/Units 20:22 06:32 06:32 RBC 3.70 L (3.80-5.40) m/uL Hgb 10.9 L (11.4-16.0) gm/dL Hct 33.4 L (34.0-46.0) % Potassium 5.2 H (3.5-5.1) mmol/L BUN 32 H (7-17) mg/dL POC Glucose (mg/dL) 169 H (75-99) mg/dL Assessment and Plan Plan: 1. Syncope usually in the morning after medication. Highly suspicious of medication induced hypotension occurrences are intermittent over the past 4 weeks this would be the fourth occurrence. EEG of the brain was normal, blood pressure medications would be titrated again and with the resumption of Entresto 1 tab bid, midodrine 5 mg 3 times a day added, will monitor orthostatics closely. 2. Last echocardiogram performed at [facility], September 2016 EF 15-20 %, moderate to severe tricuspid regurgitation, right ventricle systolic pressure 46, severe MR and no pericardial effusion no aortic stenosis noted, has aortic sclerosis and moderate aortic regurgitation 3. Chronic CHF exacerbation with mixed systolic and diastolic component with severe systolic dysfunction ejection fraction 20% currently compensated. Patient on consultation by cardiology, patient currently is on Coreg, Lipitor, aspirin 81, her last ultrasound shows ejection fraction of 20 percent September 2016. Troponins are normal 4. Orthostatic hypotension. Midodrine 5 mg tid will monitor for persistence of orthostatic hypotension 5. Prior non-ST [place] in 02/04/2015 status with critical multivessel coronary disease for which they have declined CABG procedures as recommended by Dr. Swan in the past January 2015: 6. History of ischemic cardiomyopathy ejection fraction of 20% with high degree A-V block requiring dual-chamber ICD implantation 01/30/2015 7. Diabetes mellitus type 2 on Prandin with meals and Accu-Chek 8. COPD without any exacerbation 9. Hypertensive cardiovascular disease with ischemic cardiomyopathy, medication as above 10. Hypothyroidism on levothyroxine 11. CAD with previous CABG. 12. History of parotitis diagnosed also in January 2015 no recurrence at this time 13. GERD: Will add Pepcid 20 mg daily. 14. Diarrhea transient C. diff negative symptoms improved. 15. DVT prophylaxis: Patient was started on Lanoxin 30 mg subcu daily for now. 16. Pulmonary prophylaxis: Incentive spirometry bedside. The above impression and plan of care have been discussed and directed by signing physician. Leslye Magaña nurse practitioner acting as scribe for signing physician.
[2017-01-15 17:31] LABS: Glucose,Whole Blood 140 mg/dL (75-99)
[2017-01-15] MEDS: FUROSEMIDE 20 MG TAB PO SCH (17:55)
[2017-01-15 20:12] LABS: Glucose,Whole Blood 152 mg/dL (75-99)
[2017-01-15] MEDS: ATORVASTATIN 40 MG TAB PO SCH (20:23)
[2017-01-16 00:56] VITALS: RESP 16
[2017-01-16] MEDS: LEVOTHYROXINE 100 MCG TAB PO SCH (06:20)
[2017-01-16 07:13] LABS: Glucose,Whole Blood 109 mg/dL (75-99)
[2017-01-16] MEDS: CARVEDILOL 6.25 MG TAB PO SCH ×2 (07:57→17:56)
[2017-01-16] MEDS: MIDODRINE 5 MG TAB PO SCH (07:58)
[2017-01-16] MEDS: ASPIRIN 81 MG CHEW PO SCH (07:58)
[2017-01-16] MEDS: REPAGLINIDE 1 MG TAB PO SCH ×3 (07:58→17:57)
[2017-01-16] MEDS: ISOSORBIDE DINITRATE 10 MG TAB PO SCH (07:58)
[2017-01-16] MEDS: FUROSEMIDE 40 MG TAB PO SCH (07:58)
[2017-01-16] MEDS: SACUBITRIL/VALSARTAN 24 MG-26 MG TABLET PO SCH (07:59)
[2017-01-16] MEDS: MAGNESIUM OXIDE 400 MG TAB PO SCH (07:59)
[2017-01-16 08:13] LABS: Basophils % (A) 1 %; CH 29.9; CHCM 33.1; Eosinophils # (A) 0.2 k/uL (0-0.7); Eosinophils % (A) 4 %; HDW 2.41; Luc # (Auto) 0.17; Luc % (Auto) 3; Lymphocytes # (A) 1.6 k/uL (1.0-4.8); Lymphocytes % (A) 31 %; MCH 29.4 pg (25.0-35.0); MCHC 32.3 g/dL (31.0-37.0); Mean Platelet Volume 7.5; Monocytes # (A) 0.4 k/uL (0-1.0); Monocytes % (A) 8 %; Neutrophils # (A) 2.8 k/uL (1.3-7.7); Neutrophils % (A) 53 %; RBC 3.73 m/uL (3.80-5.40); RDW 14.7 % (11.5-15.5); WBC 5.3 k/uL (3.8-10.6); WBC (Perox) 5.19
[2017-01-16 08:26] LABS: ALT 56 U/L (9-52); AST 34 U/L (14-36); Alkaline Phosphatase 144 U/L (38-126); Anion Gap 9 mmol/L; Blood Urea Nitrogen 29 mg/dL (7-17); Calcium 9.3 mg/dL (8.4-10.2); Carbon Dioxide 26 mmol/L (22-30); Chloride 103 mmol/L (98-107); Glucose 90 mg/dL (74-99); Non-African American GFR(MDRD) >60 (>60 ml/min/1.73 sqM); Sodium 138 mmol/L (137-145); Total Bilirubin 0.4 mg/dL (0.2-1.3); Total Protein 7.7 g/dL (6.3-8.2)
[2017-01-16] MEDS: INSULIN LISPRO (humaLOG) 300 UNIT/3 ML VIAL SQ SCH ×3 (08:34→17:29)
[2017-01-16] MEDS: POTASSIUM CHLORIDE ER 20 MEQ TAB.ER PO SCH (09:42)
[2017-01-16] MEDS ORDERED: hydrALAZINE HCL 25 MG TAB PO STA (09:51)
[2017-01-16] MEDS: ACETAMINOPHEN TAB 325 MG TAB PO PRN (10:12)
--- NOTE | 2017-01-16 11:43 | P.PN ---
Subjective This is a pleasant 86-year-old female with past medical history significant for coronary artery disease, ischemic cardiomyopathy, AICD, hypertension and dyslipidemia. He isn't to the hospital with episodes of syncope. She lives at home with her daughter who manages all of her medical care. She follows closely with Dr. BELLA Cooney as an outpatient. During this hospitalization she underwent neurology consultation as well as ICD interrogation. ICD showed normal function with no tach arrhythmias. She is orthostatic positive with a standing blood pressure 83/42. Her medications have been adjusted throughout this hospital stay. Lengthy discussion was had with the daughters regarding recommendations. Recommendations were written out on a 3 x 5 curd for the daughters to take home. At the time of my examination along with Dr. Cooney she is seen sitting up in the chair. She denies chest pain , shortness of breath, dizziness or palpitations at this time. Objective - Vital Signs Vital signs: Vital Signs Temp 97.4 F L 01/16/17 07:00 Pulse 62 01/16/17 09:00 Resp 16 01/16/17 07:00 BP 113/56 01/16/17 09:00 Pulse Ox 97 01/16/17 07:00 Intake & Output 01/15/17 01/16/17 01/16/17 18:59 06:59 18:59 Intake Total 480 Balance 480 Weight 48.5 kg Intake: Oral 480 Other: Voiding Method Toilet Toilet Toilet # Voids 4 1 # Bowel Movements 1 - Exam GENERAL: Well-appearing, well-nourished and in no acute distress. NECK: Supple without JVD or thyromegaly. LUNGS: Breath sounds clear to auscultation bilaterally. Respiration equal and unlabored. No wheezes, rales or rhonchi. HEART: Regular rate and rhythm with systolic ejection murmur at the base, no rubs or gallops. S1 and S2 heard. EXTREMITIES: Normal range of motion, no edema. No clubbing or cyanosis. Peripheral pulses intact and strong. - Labs CBC & Chem 7: 01/16/17 07:31 01/16/17 07:31 Labs: Abnormal Lab Results - Last 24 Hours (Table) 01/15/17 01/15/17 01/15/17 Range/Units 11:27 17:29 20:08 RBC (3.80-5.40) m/uL Hgb (11.4-16.0) gm/dL BUN (7-17) mg/dL POC Glucose (mg/dL) 156 H 140 H 152 H (75-99) mg/dL ALT (9-52) U/L Alkaline Phosphatase (38-126) U/L 01/16/17 01/16/17 01/16/17 Range/Units 07:11 07:31 07:31 RBC 3.73 L (3.80-5.40) m/uL Hgb 11.0 L (11.4-16.0) gm/dL BUN 29 H (7-17) mg/dL POC Glucose (mg/dL) 109 H (75-99) mg/dL ALT 56 H (9-52) U/L Alkaline Phosphatase 144 H (38-126) U/L Assessment and Plan Plan: ASSESSMENT 1. Orthostatic hypotension secondary to fluid volume depletion 2. Chronic stable coronary artery disease 3. Ischemic cardiomyopathy with AICD 4. Essential hypertension PLAN It seems this patient is suffering from orthostatic hypotension related in part to volume depletion. We will recommend hold Lasix for today and tomorrow. She is to resume Lasix on at 20 mg by mouth in the morning. Her evening dose should be discontinued at this time. She is also to discontinue routine use of hydralazine. She should keep this hydralazine to be given as needed if blood pressures greater than 140/90. Entresto should be resumed at half the dose. The patient as well as her daughters have been advised to take half a tablet in the morning and half a tablet in the evening. Continue midodrine as previously prescribed. Keep log of blood pressures and document any related symptoms. Daughters advised to call Dr. BELLA Cooney in the office Sunday afternoon for status update. Follow-up appointment will be discussed at that time. Nurse Practitioner note has been reviewed, I agree with a documented findings and plan of care. Patient was seen and examined.
--- NOTE | 2017-01-16 12:29 | P.DS ---
Providers Date of admission: 01/10/17 17:24 Expected date of discharge: 01/16/17 Attending physician: Karen Morgan Consults: 01/10/17 17:25 Consult Physician Urgent Consulting Provider: Ranjit Delcid Consult Reason/Comments: Possible seizure Do you want consulting provider notified?: Yes, Notify in am Consult Physician Urgent Consulting Provider: Clement Pozo Consult Reason/Comments: Syncope Do you want consulting provider notified?: Yes, Notify in am 01/16/17 10:34 Consult Physician Routine Consulting Provider: Chad Cooney Consult Reason/Comments: syncope Do you want consulting provider notified?: Already Contacted Primary care physician: [place] [facility] Course: This is an 86-year-old pleasant lady patient of Dr. Warren. Dr. BELLA Gregorio She has underlying history of ischemic cardiac myopathy, systolic CHF ejection fraction of 20%, status post AICD placement, hypothyroidism, diabetes mellitus type 2, hypertension, chronic right pleural effusion, COPD, who was sent in to the emergency room secondary to recurrent syncopal events. Patient would be noticed to be slumped over in her recliner, with drooling, is difficult to arouse, blood pressure was noted to be in the 60s according to the family members, blood sugar were all normal, otherwise there is no other focal neurologic deficits, patient had been witnessed to have decorticate posturing on the on the right side of the upper extremity when this occurs, this would be her fourth event. According to the family members be started 4 weeks ago the related to the initiation of Entresto, the medication would go go back down and thereafter be stabilized at the dosing and titrated up to a twice a day dose and the texturing machine fixer thereafter discontinued this after the second with titration on his the blood pressure remained to be low. Hydralazine was not discontinued at this point however lisinopril was discontinued. Her Lasix remain the same. The symptoms persisted for another 2 weeks with syncope lightheadedness, despite withdrawal of the drug 2 weeks in a row. Patient's family are more concerned as the patient took a longer time to arouse this time hence the ER evaluation at [facility]. There was some concern about the seizure-like activity and the decortication eyes there was no neurologist control systems engineer, patient was requested to be transferred to [facility]. As per family members urinalysis was performed and was unremarkable patient denies any headache no diplopia no isolated motor deficits in the upper and lower extremity, patient has chronic memory losses . No diarrhea no nausea no abdominal pain prior to admission. On the day of her stay in the hospital she had a few bouts of diarrhea she also has suprapubic pain on examination blood pressure is currently stable without any pressor agents, heart rate in the high 60s. Patient was in consultation by Dr. Delcid [facility] 01/12: Patient has diarrhea which has resolved as his morning required been till and Questran, no lightheadedness or dizziness no nausea no vomiting, expecting Entresto to be started in the morning hydralazine and losartan has been discontinued 01/13: Patient's doing okay without any symptoms, and entresto started this morning. Orthostatics is closely monitored, if patient continues to do well, we 'll discharge in the morning. No hypoglycemia noted 01/14. patient complained of headache after breakfast with minimal nausea, no abdominal pain. pt not ready for discharge today patient request to stay 1 more day. proamatine discontinued today. no hypotension, no new adjustment on entresto 01/15: Patient was seen and evaluated today. Family is at the bedside. Patient complains of headache, still noted to have positive orthostatics upon standing. Midodrine will be added 5 mg 3 times a day. Will monitor her orthostatics closely, she will continue on the Entresto. 01/16: Patient was noted to be hypertensive today and her midodrine decreased to 2.5 mg twice a day. Per cardiology's recommendations, she'll hold Lasix for today and tomorrow, and resume Lasix on and discontinue her evening dose. She will continue to hold her hydralazine and continue Entresto, she'll follow-up with Dr. Cooney in the office Sunday. Discharge diagnoses: 1. Syncope 2. Chronic CHF exacerbation with mixed systolic and diastolic component 3. Orthostatic hypotension 4. Prior non-ST RI in 02/04/2015 5. History of ischemic cardiomyopathy 6. Diabetes mellitus type 2 7. COPD 8. Hypertensive cardiovascular disease with ischemic cardiomyopathy 9. Hypothyroidism 10. CAD with previous CABG 11. History of parotitis 12. GERD 13. Diarrhea transient C. diff negative The above impression and plan of care have been discussed and directed by signing physician. Leslye Magaña nurse practitioner acting as scribe for signing physician. Patient Condition at Discharge: Stable Plan - Discharge Summary New Discharge Prescriptions: New Acetaminophen Tab [Tylenol] 650 mg PO Q6HR PRN tab PRN Reason: Mild Pain Or Fever > 100.5 Aspirin 81 mg PO DAILY Dicyclomine [Bentyl] 10 mg PO QID PRN #120 cap PRN Reason: Dyspepsia Midodrine [ProAmatine] 2.5 mg PO AC-BID #60 tab Sacubitril/Valsartan [Entresto 24 mg-26 mg Tablet] 0.5 each PO BID tab Continue Levothyroxine Sodium [Synthroid] 100 mcg PO DAILY Atorvastatin [Lipitor] 40 mg PO HS Carvedilol [Coreg] 6.25 mg PO BID-W/MEALS #60 tab Repaglinide [Prandin] 1 mg PO TID #0 Isosorbide Dinitrate 30 mg PO DAILY Magnesium Oxide 800 mg PO DAILY Potassium Chloride [Klor-Con 20] 20 meq PO DAILY Changed Furosemide [Lasix] 20 mg PO DAILY #0 Discontinued Furosemide [Lasix] 20 mg PO DAILY@1700 hydrALAZINE HCL [Apresoline] 25 mg PO BID #60 tab Discharge Medication List Atorvastatin [Lipitor] 40 mg PO HS 05/15/15 [History] Levothyroxine Sodium [Synthroid] 100 mcg PO DAILY 05/15/15 [History] Carvedilol [Coreg] 6.25 mg PO BID-W/MEALS #60 tab 05/21/15 [Rx] Repaglinide [Prandin] 1 mg PO TID #0 05/21/15 [Rx] Isosorbide Dinitrate 30 mg PO DAILY 01/10/17 [History] Magnesium Oxide 800 mg PO DAILY 01/10/17 [History] Potassium Chloride [Klor-Con 20] 20 meq PO DAILY 01/10/17 [History] Acetaminophen Tab [Tylenol] 650 mg PO Q6HR PRN tab 01/16/17 [Rx] Aspirin 81 mg PO DAILY 01/16/17 [Rx] Dicyclomine [Bentyl] 10 mg PO QID PRN #120 cap 01/16/17 [Rx] Furosemide [Lasix] 20 mg PO DAILY #0 01/16/17 [Rx] Midodrine [ProAmatine] 2.5 mg PO AC-BID #60 tab 01/16/17 [Rx] Sacubitril/Valsartan [Entresto 24 mg-26 mg Tablet] 0.5 each PO BID tab [Rx] Follow up Appointment(s)/Referral(s): Chad Cooney MD [STAFF PHYSICIAN] - 01/22/17 (Please call the office in the afternoon 01/22 for phone conference with Dr. Cooney. ) Eduar Warren DO [Primary Care Provider] - 1-2 days
[2017-01-16 15:54] LABS: Glucose,Whole Blood 155 mg/dL (75-99)
[2017-01-16 17:10] VITALS: BP 123/56; PULSE 64; TEMP 97.6
[2017-01-16 17:18] LABS: Glucose,Whole Blood 110 mg/dL (75-99)
[2017-01-16] MEDS ORDERED: MIDODRINE 5 MG TAB PO SCH (17:30)
[2017-01-16] MEDS ORDERED: hydrALAZINE HCL 25 MG TAB PO SCH (21:00)
== END 2017-01-16 18:50 | disposition home or self-care (01) | DRG 312 ==
LOC: EC 16:44 → 6SEL 17:24 → 5ONC 01-12 10:21
PROVIDERS: ADMIT Family Medicine; ATTEND Family Medicine
PROC: 4B02XTZ Measurement of Cardiac Defibrillator, External Approach (ICD-10-PCS; principal; 2017-01-11)
DX: I95.1 Orthostatic hypotension (principal); I50.43 Acute on chronic combined systolic (congestive) and diastolic (congestive) heart failure; I44.2 Atrioventricular block, complete; J44.9 Chronic obstructive pulmonary disease, unspecified; I36.1 Nonrheumatic tricuspid (valve) insufficiency; I35.8 Other nonrheumatic aortic valve disorders; Z95.1 Presence of aortocoronary bypass graft; E11.9 Type 2 diabetes mellitus without complications; D64.9 Anemia, unspecified; E86.9 Volume depletion, unspecified; I11.0 Hypertensive heart disease with heart failure; I44.7 Left bundle-branch block, unspecified; I34.0 Nonrheumatic mitral (valve) insufficiency; I35.1 Nonrheumatic aortic (valve) insufficiency; I25.5 Ischemic cardiomyopathy; I25.10 Atherosclerotic heart disease of native coronary artery without angina pectoris; E03.9 Hypothyroidism, unspecified; E78.5 Hyperlipidemia, unspecified; R25.3 Fasciculation; R10.2 Pelvic and perineal pain; K44.9 Diaphragmatic hernia without obstruction or gangrene; R53.1 Weakness; I25.2 Old myocardial infarction; H91.92 Unspecified hearing loss, left ear; R51 Headache; R19.7 Diarrhea, unspecified; K21.9 Gastro-esophageal reflux disease without esophagitis; Z95.810 Presence of automatic (implantable) cardiac defibrillator; Z79.899 Other long term (current) drug therapy; Z82.3 Family history of stroke; Z82.49 Family history of ischemic heart disease and other diseases of the circulatory system; Z71.3 Dietary counseling and surveillance; Z86.19 Personal history of other infectious and parasitic diseases; Z98.42 Cataract extraction status, left eye; Z90.49 Acquired absence of other specified parts of digestive tract
CPT/HCPCS: 80048; 80053; 81001; 82550; 82553; 83036; 83735; 84484; 85025; 85027; 87086; 87324; 95819; 99285

== ENCOUNTER → 2017-03-26 | Outpatient (CLI) | payer MEDICARE, OTHER ==
[2017-03-26 08:57] LABS: Basophils % (A) 0 %; CH 28.5; CHCM 31.3; Eosinophils # (A) 0.2 k/uL (0-0.7); Eosinophils % (A) 2 %; HCT 38.7 % (34.0-46.0); HDW 2.27; Luc # (Auto) 0.11; Luc % (Auto) 2; Lymphocytes # (A) 1.5 k/uL (1.0-4.8); Lymphocytes % (A) 23 %; MCH 28.5 pg (25.0-35.0); MCHC 31.1 g/dL (31.0-37.0); MCV 91.6 fL (80.0-100.0); Mean Platelet Volume 7.4; Monocytes # (A) 0.5 k/uL (0-1.0); Monocytes % (A) 8 %; Neutrophils # (A) 4.1 k/uL (1.3-7.7); Neutrophils % (A) 65 %; RBC 4.23 m/uL (3.80-5.40); WBC 6.4 k/uL (3.8-10.6); WBC (Perox) 6.55
[2017-03-26 09:29] LABS: ALT 67 U/L (9-52); AST 45 U/L (14-36); Alkaline Phosphatase 110 U/L (38-126); Anion Gap 10 mmol/L; Blood Urea Nitrogen 30 mg/dL (7-17); Carbon Dioxide 24 mmol/L (22-30); Chloride 104 mmol/L (98-107); Cholesterol 127 mg/dL (<200); Glucose 119 mg/dL (74-99); HDL Cholesterol 92 mg/dL (40-60); Non-African American GFR(MDRD) >60 (>60 ml/min/1.73 sqM); Potassium 5.7 mmol/L (3.5-5.1); Sodium 138 mmol/L (137-145); Total Bilirubin 0.5 mg/dL (0.2-1.3); Total Protein 8.5 g/dL (6.3-8.2)
== END | disposition home or self-care (01) ==
LOC: LABWHC1 08:05
PROVIDERS: ATTEND Family Medicine
DX: E78.5 Hyperlipidemia, unspecified (principal); I10 Essential (primary) hypertension; E11.9 Type 2 diabetes mellitus without complications
CPT/HCPCS: 36415; 80053; 80061; 83036; 84439; 84443; 85025

== ENCOUNTER 2017-09-02 10:14 | Emergency (ER) | payer MEDICARE, OTHER ==
[2017-09-02] MEDS ORDERED: HEPARIN SODIUM,PORCINE 5,000 UNIT/ML 1 ML VIAL IV ONE (10:29)
--- NOTE | 2017-09-02 10:36 | XR ---
EXAMINATION TYPE: XR chest 1V portable DATE OF EXAM: 09/02/2017 HISTORY: chest pain. REFERENCE: Previous study dated 07/06/2016. FINDINGS: The patient is on a trauma board and this causes significant artifact. There is a multilead pacing device in place on the left. There has been a midline sternotomy. The heart is enlarged. There is vascular congestion and pulmonary edema. I could not exclude a right- sided effusion. IMPRESSION: 1. SUBOPTIMAL EXAMINATION. 2. FINDINGS MOST CONSISTENT WITH CONGESTIVE HEART FAILURE.
[2017-09-02 10:45] LABS: Basophils # (A) 0.1 k/uL (0-0.2); Basophils % (A) 1 %; Eosinophils # (A) 0.1 k/uL (0-0.7); Eosinophils % (A) 1 %; HCT 44.9 % (34.0-46.0); HGB 13.5 gm/dL (11.4-16.0); Hypochromasia Moderate; Lymphocytes # (A) 3.4 k/uL (1.0-4.8); Lymphocytes % (A) 34 %; MCH 27.2 pg (25.0-35.0); MCV 90.5 fL (80.0-100.0); Mean Platelet Volume 7.4; Monocytes # (A) 0.3 k/uL (0-1.0); Monocytes % (A) 3 %; Neutrophils % (A) 60 %; Platelet Count 254 k/uL (150-450); RBC 4.96 m/uL (3.80-5.40)
[2017-09-02 10:50] LABS: INR 1.6 (<1.2); Prothrombin Time 15.2 sec (9.0-12.0)
[2017-09-02 10:52] LABS: Albumin 4.2 g/dL (3.5-5.0); Magnesium 1.9 mg/dL (1.6-2.3); Potassium 6.1 mmol/L (3.5-5.1); Total Bilirubin 1.1 mg/dL (0.2-1.3); Total Protein 7.8 g/dL (6.3-8.2)
[2017-09-02 10:53] VITALS: RESP 18
[2017-09-02 10:58] LABS: ABG HCO3 13 mmol/L (21-25); ABG Oxygen Saturation 97.8 % (94-97); ABG PCO2 35 mmHg (35-45); ABG PO2 132 mmHg (83-108); ABG TCO2 14 mmol/L (19-24)
[2017-09-02 11:02] LABS: ABG PH 7.17 (7.35-7.45)
--- NOTE | 2017-09-02 11:04 | CONS ---
CONSULTATION Mrs. Mendiola is an 86-year-old female who is seen in the emergency room for cardiac evaluation. The history was obtained from the daughter and as well as old chart. This patient has a known history of coronary artery disease with a prior history of coronary artery bypass surgery, ischemic cardiomyopathy and status post AICD placement. Patient is regularly followed by Dr. Tomas Cooney. Patient had a coronary artery bypass surgery done at [facility]. The details of which are not available. The patient has a history of congestive cardiac failure. The patient was having a problem breathing last night. This morning, after she woke up, she had a feeling of nausea vomiting and diarrhea and subsequently she passed out. The patient was unarousable. The patient underwent cardiac arrest. According to the EMS, the down time was about 10 minutes. When they arrived, the patient did not have any pulse. Patient was resuscitated and after 5-10 minutes of CPR, she gained pulses back. Patient received the medications. She did not require any shock. The patient did complain of chest pain and nausea and vomiting this morning. This patient has been treated for heart failure recently. She was recently seen by Dr. Gregorio and medications were adjusted. The patient had a cardiac catheterization done in 2013 which revealed critical stenosis in the ostium of the LAD as well as the right coronary artery. The patient's home medications include the: Lasix, hydralazine, Lipitor, Synthroid, Coreg and isosorbide, magnesium oxide, potassium chloride. Patient's last echocardiogram available in the chart is in October of 2015 which showed ischemic cardiomyopathy with severely impaired left ventricular systolic function. PHYSICAL EXAMINATION: At present reveals 87-year-old female who is intubated. She is currently not responsive. HEENT examination is negative. NECK: Supple. Jugular venous pressure is difficult to assess. Heart: First and second heart sounds are normal. Lungs: With bilateral rales, and wheezing. ABDOMEN: Soft. Extremities, peripheral pulses are not felt. Both femoral pulses are 2+. EKG shows evidence of normal sinus rhythm with sinus tachycardia and left bundle branch block pattern. The patient had left bundle branch block in the past. FINAL IMPRESSION: 1. This patient is status post cardiac arrest. The patient had initially pulseless electrical activity and patient was resuscitated. The down time was about 10 minutes and the patient was subsequently underwent CPR for 5-10 minutes. Now currently patient has a pulse and blood pressure. EKG shows evidence of left bundle branch block. 2. The patient is status post coronary artery bypass surgery and has a left bundle branch block pattern. A detailed discussion is made with the 2 daughters regarding further evaluation with a cardiac catheterization. All the risks and benefits, were fully explained to the patient and the patient's daughters. We are awaiting the results of the lab tests and depending upon the feeling of the family members and the lab tests, further recommendations would be made. Patient's overall prognosis is very poor. MMODL / IJN: [id number] /
[2017-09-02 11:17] LABS: Creatine Kinase MB 0.6 ng/mL (0.0-2.4); Troponin I 0.031 ng/mL (0.000-0.034)
[2017-09-02] MEDS ORDERED: FUROSEMIDE 10 MG/ML 4 ML VIAL IV STA (11:23)
[2017-09-02] MEDS ORDERED: NOREPINEPHRIN 4 MG-0.9% NS PMX 4 MG/250 ML ML IV ONE ×2 (11:23→11:30)
--- NOTE | 2017-09-02 11:23 | ED ---
CPR HPI - General Chief Complaint: Cardiac Arrest/CPR Stated Complaint: Cardiac Arrest Time Seen by Provider: 09/02/17 10:14 Source: patient, family, EMS, RN notes reviewed Mode of arrival: EMS - History of Present Illness Initial Comments: This is a 87-year-old female with a history of bypass surgery pacemaker who was brought in by EMS after being found unresponsive on a toilet. EMS was called after she was found be unresponsive by family members other cognitive earlier she was in what appear to be a PEA arrest she was brought and CPR was initiated as well as ACLS protocol total time of chest compressions approximately 10-11 minutes. She presented unresponsive she did however have a pulse upon arrival. She required intubation prior to arrival. The initial information was otherwise limited. MD Complaint: found unresponsive - Related Data Home Medications Medication Instructions Recorded Confirmed Atorvastatin [Lipitor] 40 mg PO HS 05/15/15 01/10/17 Levothyroxine Sodium [Synthroid] 100 mcg PO DAILY 05/15/15 01/10/17 Isosorbide Dinitrate 30 mg PO DAILY 01/10/17 01/10/17 Magnesium Oxide 800 mg PO DAILY 01/10/17 01/10/17 Potassium Chloride [Klor-Con 20] 20 meq PO DAILY 01/10/17 01/10/17 Previous Rx's Medication Instructions Recorded Carvedilol [Coreg] 6.25 mg PO BID-W/MEALS #60 tab 05/21/15 Repaglinide [Prandin] 1 mg PO TID #0 05/21/15 Acetaminophen Tab [Tylenol] 650 mg PO Q6HR PRN tab 01/16/17 Aspirin 81 mg PO DAILY 01/16/17 Dicyclomine [Bentyl] 10 mg PO QID PRN #120 cap 01/16/17 Furosemide [Lasix] 20 mg PO DAILY #0 01/16/17 Midodrine [ProAmatine] 2.5 mg PO AC-BID #60 tab 01/16/17 Sacubitril/Valsartan [Entresto 24 0.5 each PO BID tab 01/16/17 mg-26 mg Tablet] Allergies Allergy/AdvReac Type Severity Reaction Status Date / Time No Known Allergies Allergy Verified 05/15/15 11:02 Review of Systems ROS Statement: Those systems with pertinent positive or pertinent negative responses have been documented in the HPI. ROS Other: All systems not noted in ROS Statement are negative. Limitations: ROS unobtainable due to patients medical condition Past Medical History Past Medical History: Coronary Artery Disease (CAD), Heart Failure, Diabetes Mellitus, GERD/Reflux, Hearing Disorder / Deafness, Hyperlipidemia, Hypertension , Myocardial Infarction (MD), Thyroid Disorder Additional Past Medical History / Comment(s): 05-04-14 MD. per patient's family , patient never had a CVA/TIA. 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 UTI-ECOLI 2014,HIATAL HERNIA Last Myocardial Infarction Date:: 05-04-14 History of Any Multi-Drug Resistant Organisms: None Reported Past Surgical History: Cholecystectomy, Coronary Bypass/CABG, Heart Catheterization, Pacemaker Additional Past Surgical History / Comment(s): CABG May 2014 at [facility]. LT CATARACT SX, EGD W/ BX-NEG Past Anesthesia/Blood Transfusion Reactions: No Reported Reaction Type of Cardiac Device: AICD Device Placement Date:: April 2015 Past Psychological History: No Psychological Hx Reported Smoking Status: Never smoker - Past Family History Father Family Medical History: CVA/TIA, Myocardial Infarction (MD) Mother Family Medical History: CVA/TIA General Exam - General Exam Comments Initial Comments: This a well-developed asthenic appearing female who was unresponsive and intubated. General appearance: other (Unresponsive) Head exam: Present: atraumatic, normocephalic, normal inspection Eye exam: Present: other (Pupils are fixed and midpoint) ENT exam: Present: other (Orotracheal tube in place) Neck exam: Present: normal inspection Respiratory exam: Present: decreased breath sounds Cardiovascular Exam: Present: regular rate, other (Thready pulses initially) GI/Abdominal exam: Present: soft. Absent: bruit, pulsatile mass Rectal exam: Present: deferred Extremities exam: Present: normal inspection Back exam: Present: normal inspection Neurological exam: Present: other (Unresponsive) Psychiatric exam: Present: other (Unable to evaluate) Skin exam: Present: pallor Course Vital Signs 09/02/17 09/02/17 09/02/17 10:20 10:53 11:29 Pulse Rate 90 60 Pulse Rate [ 90 Nail Machine Operator ] Respiratory 18 18 18 Rate Blood Pressure 169/94 79/35 O2 Sat by Pulse 100 Oximetry 09/02/17 12:05 Pulse Rate 60 Pulse Rate [ Nail Machine Operator ] Respiratory 18 Rate Blood Pressure O2 Sat by Pulse 97 Oximetry - Reevaluation(s) Reevaluation #1: 09/02/17 13:33 Patient require eventual pressors as her blood pressure was low good peripheral IVs were established in addition to the IO was noted by paramedics. Reevaluation #2: 09/02/17 13:35 Dr. Stearns did evaluate the patient in emergency department she currently is not a candidate for [employer] Golden Gate Developer. Reevaluation #3: 09/02/17 13:36 Repeat EKG was done showing pacemaker rhythm with a rate of about 60 artifact is present QRS 180 QT since QTC of 300/427 Medical Decision Making - Medical Decision Making The original plan was to admit the patient ICU for continued inpatient care. The patient did likely suffer cervical anoxia from the precipitating event she was not a candidate for the [employer] Golden Gate Developer. Patient was seen in emergency department by Dr. Carey as well as Dr. Stearns patient continues to decline however in spite of aggressive therapy including pressors. Patient became pulseless. Family members were present and requested no further action be taken. Patient was pronounced at 1240 with some family members present. Additionally did discuss the case the medical records clerk's office at 12:59 PM and discussed the case Dr. Warren at 1315 p.m. - Lab Data Result diagrams: 09/02/17 10:20 09/02/17 10:20 Lab Results 09/02/17 09/02/17 09/02/17 Range/Units 10:20 10:20 10:20 WBC 10.0 (3.8-10.6) k/uL RBC 4.96 (3.80-5.40) m/uL Hgb 13.5 (11.4-16.0) gm/dL Hct 44.9 (34.0-46.0) % MCV 90.5 (80.0-100.0) fL MCH 27.2 (25.0-35.0) pg MCHC 30.0 L (31.0-37.0) g/dL RDW 14.0 (11.5-15.5) % Plt Count 254 (150-450) k/uL Neutrophils % 60 % Lymphocytes % 34 % Monocytes % 3 % Eosinophils % 1 % Basophils % 1 % Neutrophils # 6.0 (1.3-7.7) k/uL Lymphocytes # 3.4 (1.0-4.8) k/uL Monocytes # 0.3 (0-1.0) k/uL Eosinophils # 0.1 (0-0.7) k/uL Basophils # 0.1 (0-0.2) k/uL Hypochromasia Moderate PT (9.0-12.0) sec INR (<1.2) APTT (22.0-30.0) sec Sample Site ABG pH (7.35-7.45) ABG pCO2 (35-45) mmHg ABG pO2 (83-108) mmHg ABG HCO3 (21-25) mmol/L ABG Total CO2 (19-24) mmol/L ABG O2 Saturation (94-97) % ABG Base Excess mmol/L Daniel Test FiO2 % Sodium 137 (137-145) mmol/L Potassium 6.1 H (3.5-5.1) mmol/L Chloride 103 (98-107) mmol/L Carbon Dioxide 15 L (22-30) mmol/L Anion Gap 19 mmol/L BUN 21 H (7-17) mg/dL Creatinine 0.77 (0.52-1.04) mg/dL Est GFR (CKD-EPI)AfAm 81 (>60 ml/min/1.73 sqM) Est GFR (CKD-EPI)NonAf 71 (>60 ml/min/1.73 sqM) Glucose 153 H (74-99) mg/dL Plasma Lactic Acid Trev (0.7-2.0) mmol/L Calcium 9.0 (8.4-10.2) mg/dL Magnesium 1.9 (1.6-2.3) mg/dL Total Bilirubin 1.1 (0.2-1.3) mg/dL AST 28 (14-36) U/L ALT 37 (9-52) U/L Alkaline Phosphatase 122 (38-126) U/L Total Creatine Kinase 83 (30-135) U/L CK-MB (CK-2) 0.6 (0.0-2.4) ng/mL CK-MB (CK-2) Rel Index 0.7 Troponin I 0.031 (0.000-0.034) ng/mL NT-Pro-B Natriuret Pep pg/mL Total Protein 7.8 (6.3-8.2) g/dL Albumin 4.2 (3.5-5.0) g/dL 09/02/17 09/02/17 09/02/17 Range/Units 10:20 10:20 10:20 WBC (3.8-10.6) k/uL RBC (3.80-5.40) m/uL Hgb (11.4-16.0) gm/dL Hct (34.0-46.0) % MCV (80.0-100.0) fL MCH (25.0-35.0) pg MCHC (31.0-37.0) g/dL RDW (11.5-15.5) % Plt Count (150-450) k/uL Neutrophils % % Lymphocytes % % Monocytes % % Eosinophils % % Basophils % % Neutrophils # (1.3-7.7) k/uL Lymphocytes # (1.0-4.8) k/uL Monocytes # (0-1.0) k/uL Eosinophils # (0-0.7) k/uL Basophils # (0-0.2) k/uL Hypochromasia PT 15.2 H (9.0-12.0) sec INR 1.6 H (<1.2) APTT 37.0 H (22.0-30.0) sec Sample Site ABG pH (7.35-7.45) ABG pCO2 (35-45) mmHg ABG pO2 (83-108) mmHg ABG HCO3 (21-25) mmol/L ABG Total CO2 (19-24) mmol/L ABG O2 Saturation (94-97) % ABG Base Excess mmol/L Daniel Test FiO2 % Sodium (137-145) mmol/L Potassium (3.5-5.1) mmol/L Chloride (98-107) mmol/L Carbon Dioxide (22-30) mmol/L Anion Gap mmol/L BUN (7-17) mg/dL Creatinine (0.52-1.04) mg/dL Est GFR (CKD-EPI)AfAm (>60 ml/min/1.73 sqM) Est GFR (CKD-EPI)NonAf (>60 ml/min/1.73 sqM) Glucose (74-99) mg/dL Plasma Lactic Acid Trev 6.6 H* (0.7-2.0) mmol/L Calcium (8.4-10.2) mg/dL Magnesium (1.6-2.3) mg/dL Total Bilirubin (0.2-1.3) mg/dL AST (14-36) U/L ALT (9-52) U/L Alkaline Phosphatase (38-126) U/L Total Creatine Kinase (30-135) U/L CK-MB (CK-2) (0.0-2.4) ng/mL CK-MB (CK-2) Rel Index Troponin I (0.000-0.034) ng/mL NT-Pro-B Natriuret Pep 46745 pg/mL Total Protein (6.3-8.2) g/dL Albumin (3.5-5.0) g/dL 09/02/17 Range/Units 10:55 WBC (3.8-10.6) k/uL RBC (3.80-5.40) m/uL Hgb (11.4-16.0) gm/dL Hct (34.0-46.0) % MCV (80.0-100.0) fL MCH (25.0-35.0) pg MCHC (31.0-37.0) g/dL RDW (11.5-15.5) % Plt Count (150-450) k/uL Neutrophils % % Lymphocytes % % Monocytes % % Eosinophils % % Basophils % % Neutrophils # (1.3-7.7) k/uL Lymphocytes # (1.0-4.8) k/uL Monocytes # (0-1.0) k/uL Eosinophils # (0-0.7) k/uL Basophils # (0-0.2) k/uL Hypochromasia PT (9.0-12.0) sec INR (<1.2) APTT (22.0-30.0) sec Sample Site LBRAC ABG pH 7.17 L* (7.35-7.45) ABG pCO2 35 (35-45) mmHg ABG pO2 132 H (83-108) mmHg ABG HCO3 13 L (21-25) mmol/L ABG Total CO2 14 L (19-24) mmol/L ABG O2 Saturation 97.8 H (94-97) % ABG Base Excess -16.0 mmol/L Daniel Test Yes FiO2 100 % Sodium (137-145) mmol/L Potassium (3.5-5.1) mmol/L Chloride (98-107) mmol/L Carbon Dioxide (22-30) mmol/L Anion Gap mmol/L BUN (7-17) mg/dL Creatinine (0.52-1.04) mg/dL Est GFR (CKD-EPI)AfAm (>60 ml/min/1.73 sqM) Est GFR (CKD-EPI)NonAf (>60 ml/min/1.73 sqM) Glucose (74-99) mg/dL Plasma Lactic Acid Trev (0.7-2.0) mmol/L Calcium (8.4-10.2) mg/dL Magnesium (1.6-2.3) mg/dL Total Bilirubin (0.2-1.3) mg/dL AST (14-36) U/L ALT (9-52) U/L Alkaline Phosphatase (38-126) U/L Total Creatine Kinase (30-135) U/L CK-MB (CK-2) (0.0-2.4) ng/mL CK-MB (CK-2) Rel Index Troponin I (0.000-0.034) ng/mL NT-Pro-B Natriuret Pep pg/mL Total Protein (6.3-8.2) g/dL Albumin (3.5-5.0) g/dL - EKG Data -: EKG Interpreted by Me EKG shows normal: sinus rhythm (The main pacer maker rate was 88 OK interval 264 QRS 192 QT since QTC of 448/542 this is compared to an EKG dated 01/11/17 there was a unifocal PVC otherwise it is compared with the EMS tracing.) - Radiology Data Radiology results: report reviewed (I did review the imaging and report evidence of pulmonary edema/CHF.), image reviewed Critical Care Time Critical Care Time: Yes Critical Care Time: 59 minutes of critical care time which includes initial monitoring of the EMS run and discussed with paramedics history physical labs x-rays multiple reevaluation the patient discussed with multiple physicians. I did also discuss case with the medical records clerk's in the attending family physician. Documentation of the above Disposition Clinical Impression: Sudden cardiac , Pulmonary edema, Acute respiratory failure Disposition: Is patient prescribed a controlled substance at d/c from ED?: No Referrals: Gala Gregorio MD [Primary Care Provider] - 1-2 days Preliminary Cause of : Sudden cardiac
--- NOTE | 2017-09-02 11:55 | PN ---
PROGRESS NOTE This patient's condition was reassessed. Patient stays in the emergency room. Her blood pressure is now 60-70 systolic. Chest x-ray suggestive of pulmonary edema. The patient's blood tests shows a pH of 7.17 and lactic acid is elevated. Patient's EKG shows left bundle branch block without any significant change from the prior condition. It appears that the patient had a cardiac arrest most likely secondary to pulmonary edema and the patient currently is in cardiogenic shock with the lactic acidosis as well as metabolic acidosis. The patient's overall prognosis is poor. 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 Condition discussed with the family members. We will at present continue the supportive treatment with vasopressors in the intensive care unit. Depending upon the progress, further recommendations will be made. The patient's prognosis is poor. The CODE CONDITION was discussed with the family members and they will let us know. KASH / BERKLEY: [id number] /
[2017-09-02 12:04] VITALS: BP 79/35; PULSE 60
== END 2017-09-02 15:07 | disposition expired ==
LOC: EC 10:14
DX: I48.91 Unspecified atrial fibrillation (principal); J81.1 Chronic pulmonary edema; J96.00 Acute respiratory failure, unspecified whether with hypoxia or hypercapnia; I49.3 Ventricular premature depolarization; H91.92 Unspecified hearing loss, left ear; E78.5 Hyperlipidemia, unspecified; I11.0 Hypertensive heart disease with heart failure; I50.9 Heart failure, unspecified; I25.10 Atherosclerotic heart disease of native coronary artery without angina pectoris; E07.9 Disorder of thyroid, unspecified; Z95.0 Presence of cardiac pacemaker; Z95.1 Presence of aortocoronary bypass graft; Z82.49 Family history of ischemic heart disease and other diseases of the circulatory system
CPT/HCPCS: 99291; 92950; 96365; 96375 ×2; 36415; 36600; 94002; 93005; 83880; 80053; 82550; 82553; 82805; 83605; 83735; 84484; 85025; 85610; 85730; 71045; J1644; J1940